=== PATIENT | male | born 1950 | race Two or more races ===

== ENCOUNTER 2025-07-17 09:50 | Inpatient (IN) | payer OTHER, MEDICAID, MEDICARE, SELFPAY ==
[2025-07-17] VITALS (7 sets, daily range): BP systolic 110–174; BP diastolic 67–92; PULSE 80–92; RESP 18–20; TEMP 36.2–36.7; O2SAT 92–96; BMI 27.5; BMI 33.2
--- NOTE | 2025-07-17 10:04 | XR_ITS ---
Examination: CT brain head without contrast. 2-D sagittal coronal reconstructions Date and time of exam:July 17, 2025 1010 hours INDICATIONS: Ground-level fall today with injury to the head, head pain CTDI: vol (mGy):56 DLP: (mGycm):1134 Technique: Multiple CT axial sections of the brain have been obtained, 5 mm slice thickness. Contrast has not been administered. 2-D sagittal, coronal reconstructions have been obtained Low dose protocols were performed. One or more of the following dose reduction techniques were used; automated exposure control, adjustment of the mA and/or KV according to patient size, use of iterative reconstruction technique. Findings: No significant ventricular enlargement. Artifacts generated by the patient's neural transmitter wires Intra-axial or extra-axial hemorrhage density is not seen. No mass effect or midline shift Basal cisterns are not remarkable. Fourth ventricle is midline. No cranial vault fracture Impression: Limited study with no hemorrhage mass effect or midline shift noted
--- NOTE | 2025-07-17 10:04 | XR_ITS ---
Examination: CT cervical spine without contrast 2-D sagittal reconstructions 2-D coronal reconstructions 3-D reconstructions. Exam date and time:July 17, 2025 1010 hours INDICATIONS: Ground-level fall today with injury to the neck, neck pain CTDI:vol (mGy) 17.5 DLP: (mGycm) 136 Technique: Multiple 2 mm axial sections of the cervical spine have been obtained. The coronal and sagittal reconstructions have been obtained. 3-D reconstructions have been obtained. Low dose protocols were performed. One or more of the following dose reduction techniques were used; automated exposure control, adjustment of the mA and/or KV according to patient size, use of iterative reconstruction technique. Findings: Axial sections demonstrate intact base of the skull. C1 exhibit satisfactory relationship to the odontoid. No acute cervical vertebral body fracture seen. Alignment posterior spinous processes satisfactory. Impression: No acute cervical fracture.
--- NOTE | 2025-07-17 10:05 | XR_ITS ---
Examination: CT abdomen and pelvis without contrast. Coronal 3-D reconstructions. Sagittal 2-D reconstructions. Date and time of exam:July 17, 2025 1020 hours INDICATIONS: Patient fell today with abdominal tenderness CTDI: vol (mGy): 10.5 DLP: (mGycm): 693 Technique: Axial images of the abdomen have been obtained, 3 mm slice thickness Intravenous contrast material has not been administered. Low dose protocols were performed. One or more of the following dose reduction techniques were used; automated exposure control, adjustment of the mA and/or KV according to patient size, use of iterative reconstruction technique. Findings: No pneumothorax Low-density liver lesions most consistent with cysts No gallstones Spleen appears intact Prominent left perinephric stranding, differential would include perinephric hemorrhage No renal or ureteral calculi, no hydronephrosis The abdominal aorta appears intact Negative for pneumoperitoneum Urinary bladder contracted around a Brar catheter Transverse prostate dimension 5.3 cm Severe osteopenia with diffuse advanced lumbar degenerative disc disease IMPRESSION: No liver or splenic laceration on this noncontrast study Prominent left perinephric stranding, differential would include urinary tract infection, perinephric hemorrhage not excluded, consider CTA abdomen pelvis post contrast follow-up as clinically warranted
--- NOTE | 2025-07-17 10:08 | EKG_ITS ---
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
--- NOTE | 2025-07-17 10:17 | EDNOTE_ITS ---
<Statement entered by Angy Blood MD - 08/06/25 06:55> I, Angy Blood MD, have reviewed the history, exam, and assessment of the patient. I have evaluated the patient independently and agree with the plan of care documented by [ ]. All diagnostic studies were reviewed and discussed. I confirm the diagnosis as documented by the Resident. I was present during the Medical Decision Making for this patient. The patient's plan of care was created between myself and the Resident and consistent with our discussion of the patient's case. ED Abdominal Pain RME/HPI General Chief Complaint: Weakness Stated complaint: WEAKNESS Time seen by provider: 07/17/25 10:21 Arrival date/time: 07/17/25 09:50 Source: patient, EMS and other (wireless network engineer) Mode of arrival: EMS RME / HPI RME / HPI narrative: Mr. Urrutia is a 74-year-old male with past medical history of BPH with chronic indwelling Brar catheter and Parkinson's disease who presented to [facility] [place] emergency department on July 17, 2025 with a chief complaint of urinary tract infection and weakness. History obtained from EMS, wireless network engineer and patient patient started feeling weak and not like his usual self on Wednesday, was seen at [facility] and was discharged on Keflex for urinary tract infection, however patient's symptoms continued to worsen, he had a fall on Wednesday and hit his head as well. Currently complains of left-sided back pain, generalized weakness per wireless network engineer at bedside patient's Brar was changed on July 07 however Brar catheter exchanged in the emergency department showed significant cloudy urine with about 1300 cc drained likely patient's Brar catheter was occluded versus dislodged. Patient otherwise complains of no nausea vomiting shortness of breath chest pain and headache. Related Data Home Medications ?Medication ?Instructions ?Recorded ?Confirmed carbidopa 25 mg-levodopa 100 mg 2 tab PO TID 07/17/25 07/17/25 tablet pramipexole 0.25 mg tablet 0.25 mg PO TID 07/17/25 rasagiline 1 mg tablet 1 mg PO DAILY 07/17/2507/17 Allergies Allergy/AdvReac Type Severity Reaction Status Date / Time No Known Allergies Allergy Verified 07/17/25 10:53 Review of Systems Review of Systems Systems Reviewed: All systems reviewed, normal except as documented Past Medical History Past Medical History Comments PMH COMMENT: PMH: Positive for BPH with chronic indwelling Brar catheter and Parkinson's disease PSHx: Appendectomy, Deep Brain Stimulator Insertion Allergies:NKDFA Social history: -Smokin pack years, not a current smoker -Alcohol Use: Denies -Illicit Drug Use: Denies Family History: CHF in Father and Mother ED Exam Narrative Physical exam: GENERAL: no acute distress, AAO x3, laying in bed HEENT: Head AT/ NC. Mucous membranes dry. PERRL., neck is flexed forward. NECK: Supple, no lymphadenopathy, no carotid bruits. CARDIOVASCULAR: RRR. Normal S1/S2, No m/r/g. R>L pitting edema of bilateral LEs. 2+ RLE (worse at the ankle and foot) RESPIRATORY: CTAB. No wheezing, rhonchi, crackles. GASTROINTESTINAL: Abdomen soft, non tender no palpable masses. Bowel sounds present slighly distended, no rebound no guarding, no flank pain, pt endorses back pain, CVA tenderness not appreciated on exam MUSCULOSKELETAL:? No cyanosis or edema,swelling of ankles bilaterally, nontender R elbow tenderness (2/2 recent fall), NEUROLOGICAL: masked faces, No focal deficits. Sensation intact, symmetric. pill rolling tremor of RUE, PSYCHIATRIC: Awake and alert, not agitated, SKIN: No obvious rashes, no jaundice, poor turgor. Course Course Course Narrative: 74-year-old male with chronic indwelling Brar seen in ER for suspicion of UTI Brar catheter exchanged in ER, 1300 cc drained immediately suspicion of dislodgment of Brar catheter Patient had a fall earlier this week reports hitting head and bump on head Workup: CBC: WBC 20.9, hemoglobin 13.8, platelet 300, neutrophilia noted neutrophil 18.4 Coags INR 1.1, PTT APTT normal CMP sodium 135, potassium 5.7, chloride 99, bicarb 20.7, anion gap 15, BUN 69, creatinine 6.0, glucose 138, lactate 1.6, calcium 8.7, phosphorus 4.9, magnesium 2.6, bilirubin 1.7, AST 24, ALT 15, alk phos 145, ammonia less than 10, troponin negative, BNP 60, total protein 7.8, albumin 4.2, globulin 3.6, Pro-Adelfo 1.12 Urinalysis: Cloudy urine, 2+ protein, 3+ blood, positive leukocyte esterase, RBC 87, WBC 1112, rare bacteria Urine culture and blood culture sent EKG shows sinus rhythm, rate 90s some ST depression noted CT cervical spine negative for cervical fracture CT head negative, deep brain stimulator noted CT abdomen pelvis shows significant left perinephric stranding Venous Doppler obtained bilateral lower extremities negative for DVT Since replacement of Brar patient had good output nearly drained 2 L urine output Case was discussed with engineering systems analyst on-call Dr. Gutiérrez she recommended repeating renal panel later today and following urine output Patient was given ceftriaxone 2 g in ED, 1 L NS bolus, calcium chloride and Kayexalate Quality Measures none Orders Category Date Time Status Admit to Inpatient Status Routine Admission 07/17/25 13:27 Active Patient Condition Routine Admission 07/17/25 13:27 Ordered Bedside Blood Glucose NOW Care 07/17/25 10:08 Completed COVID-19 Screening Questionnaire NOW Care 07/17/25 12:30 Completed Orthodontist Assistant Q4H START 00 Care 07/17/25 10:03 Active Continuous Pulse Oximetry NOW Care 07/17/25 10:03 Completed Decision to Admit X1 Care 07/17/25 12:30 Completed Insert IV NOW Care 07/17/25 10:06 Completed Notify provider NEEDED Care 07/17/25 13:27 Active Obtain weight NOW Care 07/17/25 13:27 Active Strict Intake and Output Routine Care 07/17/25 10:08 Ordered Urinary Catheter NOW Care 07/17/25 10:09 Active Vital Signs, Non-Routine [id number] Care 07/17/25 13:30 Ordered Consult to Nephrology Stat Cons 07/17/25 12:[address] abdomen pelvis wo con Stat Exams 07/17/25 10:[address] cervical spine wo con Stat Exams 07/17/25 10:[address] head/brain wo con Stat Exams 07/17/25 10:04 Completed US venous doppler LE BI Stat Exams 07/17/25 11:09 Completed Ammonia Stat Lab 07/17/25 10:45 Completed BNP [B-Type Natriuretic Peptide] Stat Lab 07/17/25 10:45 Completed Blood Culture (Lab) Stat Lab 07/17/25 10:45 Received CBC AM DRAW Lab 07/18/25 05:31 Completed CBC AM DRAW Lab 07/19/25 05:00 Ordered CBC AM DRAW Lab 07/20/25 05:00 Ordered CBC AM DRAW Lab 07/21/25 05:00 Ordered CBC AM DRAW Lab 07/22/25 05:00 Ordered CBC AM DRAW Lab 07/23/25 05:00 Ordered CBC Stat Lab 07/17/25 10:45 Completed CMP [Comprehensive Metabolic Panel] AM DRAW Lab 07/18/25 05:31 Completed CMP [Comprehensive Metabolic Panel] AM DRAW Lab 07/19/25 05:00 Ordered CMP [Comprehensive Metabolic Panel] AM DRAW Lab 07/20/25 05:00 Ordered CMP [Comprehensive Metabolic Panel] AM DRAW Lab 07/21/25 05:00 Ordered CMP [Comprehensive Metabolic Panel] AM DRAW Lab 07/22/25 05:00 Ordered CMP [Comprehensive Metabolic Panel] AM DRAW Lab 07/23/25 05:00 Ordered CMP [Comprehensive Metabolic Panel] Routine Lab 07/17/25 14:32 Completed Comprehensive Metabolic Panel Stat Lab 07/17/25 10:45 Completed INR [Prothrombin Time with INR] Stat Lab 07/17/25 10:45 Completed Lactate (Lactic Acid) Routine Lab 07/17/25 14:32 Completed Lactate (Lactic Acid) Stat Lab 07/17/25 10:45 Completed Magnesium AM DRAW Lab 07/18/25 05:31 Completed Magnesium AM DRAW Lab 07/19/25 05:00 Ordered Magnesium AM DRAW Lab 07/20/25 05:00 Ordered Magnesium AM DRAW Lab 07/21/25 05:00 Ordered Magnesium AM DRAW Lab 07/22/25 05:00 Ordered Magnesium AM DRAW Lab 07/23/25 05:00 Ordered Magnesium Stat Lab 07/17/25 10:45 Completed PTT [Partial Thromboplastin Time] Stat Lab 07/17/25 10:45 Completed Phosphorous AM DRAW Lab 07/18/25 05:31 Completed Phosphorous AM DRAW Lab 07/19/25 05:00 Ordered Phosphorous AM DRAW Lab 07/20/25 05:00 Ordered Phosphorous AM DRAW Lab 07/21/25 05:00 Ordered Phosphorous AM DRAW Lab 07/22/25 05:00 Ordered Phosphorous AM DRAW Lab 07/23/25 05:00 Ordered Phosphorous Stat Lab 07/17/25 10:45 Completed Procalcitonin Stat Lab 07/17/25 10:45 Completed Troponin I Stat Lab 07/17/25 10:45 Completed Urinalysis Stat Lab 07/17/25 10:10 Completed Urine Culture Stat Lab 07/17/25 10:10 Results Acetaminophen Tab [Tylenol Tab] Med 07/17/25 13:27 Active 650 mg PO Q6H PRN Acetaminophen Tab [Tylenol Tab] Med 07/17/25 13:27 Active 650 mg PO Q6H PRN Calcium Chloride 10% Abboject Med 07/17/25 12:00 Discontinued 10 ml IV X1 ONE HYDROcodone/APAP 10/325 [[place] 10/325] Med 07/17/25 13:27 Active 1 tab PO Q4H PRN Heparin Inj Med 07/17/25 21:00 Discontinued 5,000 unit SC Q12HR Sod Polystyrene Sulfon Susp [Kayexalate Susp] Med 07/17/25 12:00 Discontinued 30 gm PO X1 ONE Sodium Chloride 0.9% 1000 ml [Ns] 1,000 ml Med 07/17/25 12:00 Discontinued IV 999 mls/hr cefTRIAXone [Rocephin] 2 gm Med 07/17/25 11:01 Discontinued SODIUM CHLORIDE 0.9% ([place]) [Ns 0.9% (P)] 50 ml IV X1 Code Status Routine Oth 07/17/25 13:27 Ordered EKG (RT) Stat RT 07/17/25 10:08 Draft Oxygen Delivery PRN RT 07/17/25 10:08 Active Vital Signs Vital signs: Vital Signs Temperature 98.1 F 07/17/25 09:51 Pulse Rate 90 07/17/25 09:51 Respiratory Rate 20 07/17/25 09:51 Blood Pressure 174/92 H 07/17/25 09:51 Pulse Oximetry (%) 94 L 07/17/25 09:51 Oxygen Delivery Method Room Air 07/17/25 09:51 Abdominal Pain MDM MDM Narrative MDM Narrative:: #Pyelonephritis #Complicated UTI #Severe MCKAY likely postrenal #Status post fall 74-year-old male with chronic indwelling Brar seen in ER for suspicion of UTI Brar catheter exchanged in ER, 1300 cc drained immediately suspicion of dislodgment of Brar catheter Patient had a fall earlier this week reports hitting head and bump on head Workup: CBC: WBC 20.9, hemoglobin 13.8, platelet 300, neutrophilia noted neutrophil 18.4 Coags INR 1.1, PTT APTT normal CMP sodium 135, potassium 5.7, chloride 99, bicarb 20.7, anion gap 15, BUN 69, creatinine 6.0, glucose 138, lactate 1.6, calcium 8.7, phosphorus 4.9, magnesium 2.6, bilirubin 1.7, AST 24, ALT 15, alk phos 145, ammonia less than 10, troponin negative, BNP 60, total protein 7.8, albumin 4.2, globulin 3.6, Pro-Adelfo 1.12 Urinalysis: Cloudy urine, 2+ protein, 3+ blood, positive leukocyte esterase, RBC 87, WBC 1112, rare bacteria Urine culture and blood culture sent EKG shows sinus rhythm, rate 90s some ST depression noted CT cervical spine negative for cervical fracture CT head negative, deep brain stimulator noted CT abdomen pelvis shows significant left perinephric stranding Venous Doppler obtained bilateral lower extremities negative for DVT Since replacement of Brar patient had good output nearly drained 2 L urine output Case was discussed with engineering systems analyst on-call Dr. Gutiérrez she recommended repeating renal panel later today and following urine output Patient was given ceftriaxone 2 g in ED, 1 L NS bolus, calcium chloride and Kayexalate Case discussed with hospitalist team they agreed to admit patient Case discussed with Attending Physician Dr. devang Calvo MD Internal Medicine PGY-2 Disclaimer: This note was dictated by speech recognition. Minor errors in trans cription may be present due to voice recognition software. Patient data External records reviewed:: EMS form Clinical information provided by:: patient, EMS and wireless network engineer Social determinants that could affect healthcare access:: none Patient has the following chronic illnesses:: As above How is presenting disease/condition affected by chronic disease/condition?: exacerbated by Evaluation data The following diagnostics were reviewed and interpreted by me:: lab results, radiology exam(s) and EKG tracing(s) Lab and/or radiology exams considered but not ordered:: None Interpretation Summary: CBC: WBC 20.9, hemoglobin 13.8, platelet 300, neutrophilia noted neutrophil 18.4 Coags INR 1.1, PTT APTT normal CMP sodium 135, potassium 5.7, chloride 99, bicarb 20.7, anion gap 15, BUN 69, creatinine 6.0, glucose 138, lactate 1.6, calcium 8.7, phosphorus 4.9, magnesium 2.6, bilirubin 1.7, AST 24, ALT 15, alk phos 145, ammonia less than 10, troponin negative, BNP 60, total protein 7.8, albumin 4.2, globulin 3.6, Pro-Adelfo 1.12 Urinalysis: Cloudy urine, 2+ protein, 3+ blood, positive leukocyte esterase, RBC 87, WBC 1112, rare bacteria Urine culture and blood culture sent EKG shows sinus rhythm, rate 90s some ST depression noted CT cervical spine negative for cervical fracture CT head negative, deep brain stimulator noted CT abdomen pelvis shows significant left perinephric stranding Venous Doppler obtained bilateral lower extremities negative for DVT Medications / Prescriptions Medications or Prescriptions considered but not ordered:: None Medication administrations:: Medication Administration History Acetaminophen (Acetaminophen 325 Mg Tablet) 650 mg PO Q6H PRN PRN Reason: Fever >101.5 Stop: 08/16/25 13:26 Acetaminophen (Acetaminophen 325 Mg Tablet) 650 mg PO Q6H PRN PRN Reason: PAIN SCALE 1-3 (mild Stop: 08/16/25 13:26 Hydrocodone Bitart/Acetaminophen (Hydrocodone/Apap 325 Tab) 1 tab PO Q4H PRN PRN Reason: PAIN SCALE 4-6 (Moderate Stop: 07/22/25 13:26 Docusate Sodium (Docusate Sod Liqd 100 Mg/10 Ml Udc) 100 mg PO BID PRN; Protocol PRN Reason: constipation Stop: 08/16/25 20:59 Heparin Sodium (Porcine) (Heparin Sod Inj 5000 Unit/Ml Vial) 5,000 unit SC Q12HR [facility] Stop: 07/31/25 20:59 Last Admin: 07/18/25 08:55 Dose: 5,000 unit Documented By: PUNEET Co-signed By: MARI Admin: 07/17/25 21:45 Dose: 5,000 unit Documented By: MERI Co-signed By: VANESSA Cefepime HCl 2 gm/ Sodium (Chloride) 50 mls @ 100 mls/hr IV Q12HR [facility] Stop: 07/24/25 15:59 Last Admin: 07/18/25 08:54 Dose: 100 mls/hr Documented By: Infusion: 07/17/25 17:13 Dose: Infused Documented By: Admin: 07/17/25 16:43 Dose: 100 mls/hr Documented By: PUNEET Lactated Ringer's (Lactated Ringers) 1,000 mls @ 75 mls/hr IV .[id number] [facility] Stop: 07/18/25 18:55 Last Admin: 07/18/25 06:33 Dose: 75 mls/hr Documented By: Infusion: 07/18/25 06:03 Dose: Infused Documented By: Admin: 07/17/25 16:43 Dose: 75 mls/hr Documented By: PUNEET Discontinued Medications Calcium Chloride (Calcium Chloride 10% Inj 10 Ml Syrg) 10 ml IV X1 ONE Stop: 07/17/25 12:01 Last Admin: 07/17/25 12:09 Dose: 10 ml Documented By: MOHINDER Heparin Sodium (Porcine) (Heparin Sod Inj 5000 Unit/Ml Vial) 5,000 unit SC Q12HR [facility] Stop: 07/31/25 20:59 Ceftriaxone Sodium 2 gm/ (Sodium Chloride) 50 mls @ 100 mls/hr IV X1 ONE Stop: 07/17/25 11:30 Last Infusion: 07/17/25 11:47 Dose: Infused Documented By: Admin: 07/17/25 11:12 Dose: 100 mls/hr Documented By: MOHINDER Sodium Chloride (Ns) 1,000 mls @ 999 mls/hr IV .Q1H1M ONE Stop: 07/17/25 13:00 Last Infusion: 07/17/25 13:06 Dose: Infused Documented By: Admin: 07/17/25 12:09 Dose: 999 mls/hr Documented By: MOHINDER Sodium Polystyrene Sulfonate (Sod Polystyrene Sulfon Susp 15 Gm/60 Ml Btl) 30 gm PO X1 ONE Stop: 07/17/25 12:01 Last Admin: 07/17/25 12:10 Dose: 30 gm Documented By: MOHINDER As above Consultations Consultation(s) initiated? (list below): Yes Consultation #1 (Physician, Specialty, Details): Dr. Gutiérrez, nephrology, MCKAY Diagnosis Differential diagnosis abdominal pain: other (Pyelonephritis, urinary tract infection, MCKAY postrenal) Most likely diagnosis given after review of the tests above:: MCKAY, pyelonephritis, UTI Admission Indicated Admission indicated?: indicated Admission Request Was there a request for admission?: Yes Admission Attestation Admission request attestation: Discussed case with Dr. Manuel from Hospitalist service regarding admission. Discussed patients ED course, exam findings, labs, and radiology results. The Hospitalist agrees to accept the patient for admission. Disposition Plan Disposition Plan: Admit Discharge Plan Plan Patient Disposition: Admit Acute Care w/in Hospital Problem List Clinical Impression: MCKAY (acute kidney injury), Acute pyelonephritis, Complicated urinary tract infection
[2025-07-17 10:26] LABS: Collection Type, Urine Catheter; Squamous Epithelial Cell,Urine 0 /hpf (0-5)
[2025-07-17 10:43] LABS: Bacteria,Urine Rare; Bilirubin,Urine Negative (Negative); Blood,Urine 3+ (Negative); Color,Urine Yellow (Lt Yel-Yel); Glucose, Urine Negative (Negative); Ketones,Urine Negative (Negative); Leukocyte Esterase,Urine Positive (Negative); Nitrite,Urine Negative (Negative); PH,Urine 6.0 (5.0-7.0); Protein,Urine 2+ (Neg - Trace); RBC,Urine 87 /hpf (0-3); Specific Gravity,Urine 1.017 (1.001-1.035); Urobilinogen,Urine Negative mg/dL (0.0-1.0); WBC,Urine 1112 /hpf (0-5)
[2025-07-17 10:54] LABS: Lactate (Lactic Acid) 1.6 mMol/L (0.4-2.0)
[2025-07-17 10:57] LABS: Basophils # (Auto) 0.0 Thou/mm3 (0.0-0.2); Basophils % (Auto) 0 % (0-2.5); Eosinophils # (Auto) 0.0 Thou/mm3 (0.0-0.5); Eosinophils % (Auto) 0 % (0-10); Hematocrit 41.6 % (41.0-53.0); Hemoglobin 13.8 g/dL (13.5-16.0); Immature Granulocytes Auto 0.17 Thou/mm3 (0.00-0.00); Lymphocytes # (Auto) 0.9 Thou/mm3 (1.0-4.8); Lymphocytes % (Auto) 5 % (10-50); Mean Corpuscular HGB Conc 33.2 g/dl (31.0-37.0); Mean Corpuscular Hemoglobin 29.1 pg (25.0-35.0); Mean Corpuscular Volume 88 fL (80-100); Monocytes # (Auto) 1.3 Thou/mm3 (0.0-0.8); Monocytes % (Auto) 6 % (0-12); Neutrophils # (Auto) 18.4 Thou/mm3 (1.8-7.7); Neutrophils % (Auto) 88 % (37-80); Nucleated Red Blood Cell # 0.00 Thou/mm3 (0.00-0.00); Nucleated Red Blood Cell % 0 /100 WBC (0); Platelet Count 300 Thou/mm3 (140-440); RDW Standard Deviation 43.4 fL (35.1-43.9); Red Blood Count 4.75 Miln/mm3 (4.50-5.90); White Blood Count 20.9 Thou/mm3 (3.8-10.6)
[2025-07-17 10:59] LABS: Clarity,Urine Cloudy (Clear/Hazy)
--- NOTE | 2025-07-17 11:09 | XR_ITS ---
Examination: Venous duplex lower extremity sonogram, bilateral. Date and time of exam: July 17, 2025 1220 hours INDICATIONS: Bilateral calf swelling redness and pain 6 months Technique: Multiple sonographic images of the deep venous system have been obtained. B-mode/2-D grayscale imaging of vascular structures and Doppler spectral analysis (waveforms) and color performed Both legs are examined. Findings: Deep venous systems do not demonstrate abnormal echogenicity. All visualized deep veins exhibit compressibility. All visualized deep veins exhibit augmentation. Impression: Negative for deep vein thrombosis
[2025-07-17 11:10] LABS: INR 1.1 (0.9-1.3); Partial Thromboplastin Time 28.9 Seconds (22.0-36.0); Prothrombin Time 11.6 Seconds (9.0-12.2)
[2025-07-17] MEDS: cefTRIAXone 2 GM in SODIUM CHLORIDE 0.9% (Popper) 50 ML IV (11:12)
[2025-07-17 11:22] LABS: Alanine Aminotransferase 15 U/L (10-49); Albumin, Serum 4.2 gm/dL (3.4-4.8); Albumin/Globulin Ratio 1.2 (1.2-2.2); Alkaline Phosphatase 145 U/L (46-116); Anion Gap 15 (7-16); Aspartate Amino Transferase 24 U/L (0-34); B-Type Natriuretic Peptide 60 pg/mL (0-100); BUN/Creatinine Ratio 12 Ratio (12-20); Bilirubin,Total 1.7 mg/dL (0.3-1.2); Blood Urea Nitrogen 69 mg/dL (9-23); Calcium 8.7 mg/dL (8.3-10.6); Calcium (Corrected) 8.7 mg/dL (8.5-10.1); Carbon Dioxide 20.7 mMol/L (20.0-31.0); Chloride 99 mMol/L (98-107); Creatinine (Component) 6.0 mg/dL (0.6-1.3); Estimated Creatinine Clearance 11.5 mL/min (>60); Globulin 3.6 gm/dL (2.3-3.5); Glucose 138 mg/dL (74-106); Magnesium 2.6 mg/dL (1.6-2.6); Osmolality,Calculated 292 (275-295); Phosphorous 4.9 mg/dL (2.4-5.1); Potassium 5.7 mMol/L (3.4-5.1); Procalcitonin 1.12 ng/ml (0.0-0.49); Sodium 135 mMol/L (136-145); Total Protein 7.8 gm/dL (5.7-8.2); Troponin I < 0.020 ng/mL (0.0-0.045); eGFR 9 See Note
[2025-07-17 11:39] LABS: Ammonia < 10 uMol/L (11-32)
[2025-07-17] MEDS: CALCIUM CHLORIDE 10% INJ 10 ML SYRG IV (12:09)
[2025-07-17] MEDS: SODIUM CHLORIDE 0.9% 1000 ML 1,000 ML 999 ML IV (12:09)
[2025-07-17] MEDS: SOD POLYSTYRENE SULFON SUSP 15 GM/60 ML BTL 30 GM PO (12:10)
--- NOTE | 2025-07-17 13:26 | ESHP_ITS ---
<Statement entered by Charlee Ames MD - 07/23/25 09:12> I reviewed above note and agree with findings and plans. I have also personally examined the patient with medicine team and went over assessment and plan with medical team including programming internship and resident physician. <Statement entered by Patty Lloyd MD - 07/19/25 15:41> Mr. Urrutia is a 74-year-old male with past medical history significant for BPH with chronic Cain, Parkinson's disease with deep brain stimulator and carbidopa levodopa who presented to the ED with generalized weakness and lack of appetite for the last 5 days. Patient went to [facility] 5 days ago after his Cain stopped draining and was placed on Keflex however only received 1 dose far in [place]. Patient to be admitted for further management of sepsis secondary to catheter associated UTI. Patient's SOFA score is 7 and endorgan damage noted and both creatinine and bilirubin elevation. Patient will be on IV antibiotics pending urine cultures. I discussed with and supervised the programming internship physician who took care of this patient. I personally saw and examined the patient and discussed the assessment and plan with the entire medicine team, including my attending , I agree with most of the assessment and plan as documented below Patty Lloyd M.D. PGY-3 Documentation for date of: 07/17/25 HPI History of Present Illness Chief complaint: uti with chronic cain History of present illness: Pt caregiver Jackie is present and able to supplement the patients history. Mr. Urrutia is a 74-year-old gentleman with a past medical history significant for BPH with chronic Cain who previous followed with Dr. Elizabeth, urologist, and Artemio who also has a history of Parkinson disease with deep brain stimulator in place followed by Dr. Lloyd on carbidopa levodopa who presented with generalized weakness anorexia for the past 5 days who presented to [facility] on 07/14 after his cain stopped draining (Cain was changed outpatient on 07/10)he was found to have UTI and was given Keflex 500 mg 3 times daily. Patient continued to feel weak and unlike himself and on Sunday 07/15 patient had ground- level fall without head strike and was left laying on the floor for 3 hours before his son was able to find him. Patient does not report having that history of recurrent UTIs, states that Cain's are changed every 4 to 6 weeks by the [facility]. PMH: BPH with chronic cain (reports not being on bph medications) does not have current urologist, harish followed by Dr. Powers SH: ambulates at home with walker, able to feed himself and transfer to toilets Meds: reconciliation pending ROS Endorses R elbow pain after fall, back pain, fatigue, weakness, anorexia, denies, nausea, vomiting, fevers, chills, sweating ED Course Patient vital signs stable afebrile normotensive heart rate regular satting well on room air, given CMP findings Dr Gutiérrez was consulted who suspects postrenal etiology of MCKAY recommends continuing fluids and following up on renal panel Pertinent labs: WBC 20, creatinine 6, BUN 69, potassium 5.[address] head Negative for acute hemorrhage, mass effect or midline shift, cervical spine CT no acute cervical fractures, CTAP with evidence of Prominent left perinephric stranding, differential would include urinary tract infection, perinephric hemorrhage not excluded venous Doppler of bilateral lower extremities negative for deep vein thrombosis Tx Ceftriaxone 2gm x1 Kayexalate x1 NS 1 L pt was admitted for sepsis 2/2 catheter associated UTI and pyelonephritis Review of Systems Review of Systems Narrative Review of Systems: as per hpi Past Medical History Surgical History OTHER SURGICAL HX: deep brain stimulator Exam Vital Signs Temp Pulse Resp BP Pulse Ox O2 Del Method 97.7 F 88 20 136/90 H 94 L Room Air 07/17/25 11:28 07/17/25 11:28 07/17/25 11:28 07/17/25 11:28 07/17/25 11:28 07/17/25 11:28 Narrative Exam GENERAL: no acute distress, AAO x3, laying in bed HEENT: Head AT/ NC. Mucous membranes dry. PERRL., neck is flexed forward. NECK: Supple, no lymphadenopathy, no carotid bruits. CARDIOVASCULAR: RRR. Normal S1/S2, No m/r/g. R>L pitting edema of bilateral LEs. 2+ RLE (worse at the ankle and foot), 1+ in LUE RESPIRATORY: CTAB. No wheezing, rhonchi, crackles. GASTROINTESTINAL: Abdomen soft, non tender no palpable masses. Bowel sounds present slighly distended, no rebound no guarding, no flank pain, pt endorses back pain, CVA tenderness not appreciated on exam MUSCULOSKELETAL:? No cyanosis or edema,swelling of ankles bilaterally, nontender R elbow tenderness (2/2 recent fall), NEUROLOGICAL: masked faces, No focal deficits. Sensation intact, symmetric. BUE pill rolling tremor of RUE, PSYCHIATRIC: Awake and alert, not agitated, SKIN: No obvious rashes, no jaundice, poor turgor. Results: Labs 07/17/25 10:45 07/17/25 10:45 Labs: Short CBC 07/17/25 Range/Units 10:45 WBC 20.9 H (3.8-10.6) Thou/mm3 Hgb 13.8 (13.5-16.0) g/dL Hct 41.6 (41.0-53.0) % Plt Count 300 (140-440) Thou/mm3 BMP 07/17/25 10:45 Sodium 135 L Potassium 5.7 H Chloride 99 Carbon Dioxide 20.7 BUN 69 H Creatinine 6.0 H* Glucose 138 H Calcium 8.7 Cardiac Enzymes 07/17/25 Range/Units 10:45 Troponin I < 0.020 (0.0-0.045) ng/mL Liver Function 07/17/25 Range/Units 10:45 Total Bilirubin 1.7 H (0.3-1.2) mg/dL AST 24 (0-34) U/L ALT 15 (10-49) U/L Alkaline Phosphatase 145 H (46-116) U/L Albumin 4.2 (3.4-4.8) gm/dL Urine 07/17/25 Range/Units 10:10 Urine Color Yellow (Lt Yel-Yel) Urine Clarity Cloudy A (Clear/Hazy) Urine pH 6.0 (5.0-7.0) Ur Specific Fries 1.017 (1.001-1.035) Urine Protein 2+ A (Neg - Trace) Urine Glucose (UA) Negative (Negative) Quality Measures Quality Measures VTE prophylaxis Advance care planning discussed with:: patient and other Medications Home Medications and Allergies Allergies Allergy/AdvReac Type Severity Reaction Status Date / Time No Known Allergies Allergy Verified 07/17/25 10:53 Visit Medications Discontinued Medications Calcium Chloride (Calcium Chloride 10% Inj 10 Ml Syrg) 10 ml IV X1 ONE Stop: 07/17/25 12:01 Last Admin: 07/17/25 12:09 Dose: 10 ml Ceftriaxone Sodium 2 gm/ (Sodium Chloride) 50 mls @ 100 mls/hr IV X1 ONE Stop: 07/17/25 11:30 Last Infusion: 07/17/25 11:47 Dose: Infused Sodium Chloride (Ns) 1,000 mls @ 999 mls/hr IV .Q1H1M ONE Stop: 07/17/25 13:00 Last Infusion: 07/17/25 13:06 Dose: Infused Sodium Polystyrene Sulfonate (Sod Polystyrene Sulfon Susp 15 Gm/60 Ml Btl) 30 gm PO X1 ONE Stop: 07/17/25 12:01 Last Admin: 07/17/25 12:10 Dose: 30 gm Assessment & Plan Plan Mr. Urrutia is a 74-year-old gentleman with a past medical history significant for BPH with chronic Cain who previous followed with Dr. Elizabeth, urologist, and Artemio, Parkinson disease with deep brain stimulator in place followed by Dr. Lloyd on carbidopa levodopa who presented with generalized weakness and anorexia for the past 5 days who presented to [facility] on 07/14 after his cain stopped draining (Cain was changed outpatient on 07/10)he was found to have UTI and was given Keflex 500 mg 3 times daily, but had persistence of symptoms and ground level fall (imaging negative for fractures or bleeds), who was found to be retaining urine and with pyelonephritis on CTAP, admitted for sepsis 2/2 catheter associated UTI with pyelonephritis. Sepsis 2/2 Catheter associated UTI Pyelonephritis SOFA score 7 failed outpatient management of keflex, Dx CTAP with Prominent left perinephric stranding, differential would include urinary tract infection, perinephric hemorrhage Lactic acid wnl, procal 1.12, WBC 20 UA with 3+blood, 2+ protein, + leuk esterase, 1000 wbc, and rare bacteria Ucx pending Blood cx pending Daily CBC, CMP Tx - Ceflalexin 500mg TID (prescribed by [facility] ed, pt recieved total of 4 doses prior to presenting) - Ceftriaxone 2gm x1 (07/17) - Cefepime 2gm q12 hr (07/17- - holding maintenance fluids given edematous legs - Consider broadening abx to jimmy and vanc if pt does not clinically improve Suspect post renal MCKAY BPH with chronic cain cain catheter had been changed in the outpatient setting on 07/10 and was draining appropriately until 07/14, when it stopped draining (cain gets exchanged every 4-6 weeks by pcp in [place]) cain was exchanged in the ed and had ~1300 cc output Cr 6.0 (baseline: Unknown) BUN 69, Dx f/u PM CMP Tx - Nephrology consulted, appreciate recs, suspects post renal - avoid nephrotoxic agents - renally dose medications Mild Hyperkalemia - Kayexalate in ED Mild hyponatremia (Na 136---> - CTM - 1L NS Mild Hyperbillirubinemia elevated alkaline phosphatase - CTM Ground Level Fall without headstrike pt reports having ground level fall without head strike, the fall was unwitnessed however and pt was left on the ground until son came and found him at baseline he is able to ambulate with walker Dx - CT head negative - Cervical CT no acute fractures - PT consulted Parkinsons Disease Deep brainstimulator in place, followed by Dr. Daniels - Carbidopa- levodopa TID (pending med rec) R>LLE edema DVT US, negative BNP 60, low concern for HF. Constipation healthcare financial analyst reports no BM for the past 5 days - given kayexalate see hypernatremia above - docusate 100mg prn Anorexia pt reports having minimal to no PO intake over the past several days 2/2 poor appetite he expressess willingness to try with some clears and progress as tolerated. -consider supplementing with ensures. Dispo: home (has home health already) Diet: clear liquids advance as tolerated Bowel Reg: docusate prn and kayexalate. VTE ppx: heparin 5000 q12 GI ppx: not indicated Code status: FULL Plan discussed with Dr Lloyd, and Dr. wKaku Manuel MD PGY1
[2025-07-17 14:50] LABS: Lactate (Lactic Acid) 1.6 mMol/L (0.4-2.0)
[2025-07-17 15:15] LABS: Alanine Aminotransferase 17 U/L (10-49); Albumin, Serum 3.7 gm/dL (3.4-4.8); Albumin/Globulin Ratio 1.3 (1.2-2.2); Alkaline Phosphatase 129 U/L (46-116); Anion Gap 13 (7-16); Aspartate Amino Transferase 20 U/L (0-34); BUN/Creatinine Ratio 11 Ratio (12-20); Bilirubin,Total 1.6 mg/dL (0.3-1.2); Blood Urea Nitrogen 52 mg/dL (9-23); Calcium 8.9 mg/dL (8.3-10.6); Calcium (Corrected) 9.1 mg/dL (8.5-10.1); Carbon Dioxide 22.1 mMol/L (20.0-31.0); Chloride 104 mMol/L (98-107); Creatinine (Component) 4.6 mg/dL (0.6-1.3); Estimated Creatinine Clearance 15.0 mL/min (>60); Globulin 2.8 gm/dL (2.3-3.5); Glucose 105 mg/dL (74-106); Osmolality,Calculated 291 (275-295); Potassium 4.4 mMol/L (3.4-5.1); Sodium 139 mMol/L (136-145); Total Protein 6.5 gm/dL (5.7-8.2); eGFR 12 See Note
[2025-07-17] MEDS: RINGERS LACTATED 1000 ML 1,000 ML 75 ML IV (16:43)
[2025-07-17] MEDS: CEFEPIME INJ 2 GM in SODIUM CHLORIDE 0.9% (Popper) 50 ML IV (16:43)
[2025-07-17] MEDS: HEPARIN SOD INJ 5000 UNIT/ML VIAL SC (21:45)
[2025-07-18] VITALS (10 sets, daily range): BP systolic 114–142; BP diastolic 60–78; PULSE 67–88; RESP 16–88; TEMP 36.1–36.8; O2SAT 91–98; BMI 11.0
[2025-07-18 06:11] LABS: Basophils # (Auto) 0.1 Thou/mm3 (0.0-0.2); Basophils % (Auto) 1 % (0-2.5); Eosinophils # (Auto) 0.6 Thou/mm3 (0.0-0.5); Eosinophils % (Auto) 5 % (0-10); Hematocrit 33.8 % (41.0-53.0); Hemoglobin 10.9 g/dL (13.5-16.0); Immature Granulocytes Auto 0.16 Thou/mm3 (0.00-0.00); Lymphocytes # (Auto) 1.2 Thou/mm3 (1.0-4.8); Lymphocytes % (Auto) 10 % (10-50); Mean Corpuscular HGB Conc 32.2 g/dl (31.0-37.0); Mean Corpuscular Hemoglobin 29.0 pg (25.0-35.0); Mean Corpuscular Volume 90 fL (80-100); Monocytes # (Auto) 0.9 Thou/mm3 (0.0-0.8); Monocytes % (Auto) 7 % (0-12); Neutrophils # (Auto) 8.9 Thou/mm3 (1.8-7.7); Neutrophils % (Auto) 76 % (37-80); Nucleated Red Blood Cell # 0.00 Thou/mm3 (0.00-0.00); Nucleated Red Blood Cell % 0 /100 WBC (0); Platelet Count 253 Thou/mm3 (140-440); RDW Standard Deviation 44.0 fL (35.1-43.9); Red Blood Count 3.76 Miln/mm3 (4.50-5.90); White Blood Count 11.7 Thou/mm3 (3.8-10.6)
[2025-07-18] MEDS: RINGERS LACTATED 1000 ML 1,000 ML 75 ML IV (06:33)
[2025-07-18 06:40] LABS: Alanine Aminotransferase 18 U/L (10-49); Albumin, Serum 3.0 gm/dL (3.4-4.8); Albumin/Globulin Ratio 1.2 (1.2-2.2); Alkaline Phosphatase 107 U/L (46-116); Anion Gap 12 (7-16); Aspartate Amino Transferase 16 U/L (0-34); BUN/Creatinine Ratio 19 Ratio (12-20); Bilirubin,Total 1.1 mg/dL (0.3-1.2); Blood Urea Nitrogen 45 mg/dL (9-23); Calcium 8.1 mg/dL (8.3-10.6); Calcium (Corrected) 8.9 mg/dL (8.5-10.1); Carbon Dioxide 22.7 mMol/L (20.0-31.0); Chloride 108 mMol/L (98-107); Creatinine (Component) 2.4 mg/dL (0.6-1.3); Estimated Creatinine Clearance 33.7 mL/min (>60); Globulin 2.6 gm/dL (2.3-3.5); Glucose 88 mg/dL (74-106); Magnesium 2.1 mg/dL (1.6-2.6); Osmolality,Calculated 295 (275-295); Phosphorous 3.6 mg/dL (2.4-5.1); Potassium 3.9 mMol/L (3.4-5.1); Sodium 143 mMol/L (136-145); Total Protein 5.6 gm/dL (5.7-8.2); eGFR 27 See Note
[2025-07-18] MEDS: CEFEPIME INJ 2 GM in SODIUM CHLORIDE 0.9% (Popper) 50 ML IV ×2 (08:54→22:33)
[2025-07-18] MEDS: HEPARIN SOD INJ 5000 UNIT/ML VIAL SC ×2 (08:55→22:36)
--- NOTE | 2025-07-18 09:50 | PC.SS ---
Follow up note: Pending cultures.
--- NOTE | 2025-07-18 12:28 | PC.SS ---
SS met with patient and 2 caregivers (Maggie Jimenez and Nimisha Hart) regarding his d/c plan. Pt is alert/oriented. Pt was admitted for Complicated UTI with Pyelonephritis. Pt confirmed demographic and contact information is correct on facesheet. Pt resides with sonFran. Pt ambulates utilizing a 4 wheel with seat, rollator walker. Pt requires assistance with all ADLs. Pt has 2 cargivers from [facility] (120 hours a month). SS provided 24 Hour Home Care [facility] resources at bedside. Pt named his son, Edenilson Urrutia medical decision maker if he is unable. Caregiver, Maggie states patient's son, Edenilson Urrutia has POA over pt. SS attempted to call sonEdenilson but was only able to leave voicemail. SS provided pt with d/c options to home or SNF. Patient?s choice is to return home upon d/c. Per caregivers pt is not diabetic and is not on dialysis. Pt is currently on 2 liters of O2. Pt does not utilize O2 at home. Patient utilizes [facility] through [email or web address]. Pt followed up with PCP on Wednesday. Caregivers will provide transportation home upon dc. D/C plan: Return home Next of Kin: Edenilson Urrutia, son, phone# [phone] PCP: Dr. Pierre Address: Correct on facesheet Caregivers: Maggie Jimenez, phone# [phone] and Nimisha Hart, phone# [phone]
--- NOTE | 2025-07-18 12:49 | PC.NURSE ---
I asked pt's caregivers to bring his own Rasagiline
--- NOTE | 2025-07-18 15:19 | ESPR_ITS ---
<Statement entered by Charlee Ames MD - 07/26/25 17:35> I reviewed above note and agree with findings and plans. I have also personally examined the patient with medicine team and went over assessment and plan with medical team including internal medicine specialist and resident physician. Documentation for date of: 07/18/25 Subjective Subjective Interval history: Patient examined at bedside. No events overnight. Complains of generalized weakness unable to get out of the bed work with physical therapy. Vitals are stable, leukocytosis resolving with WBC 11.7. MCKAY improving creatinine 2.4. Nephrology Dr Gutiérrez was consulted who evaluated patient. At this time we will continue half NS maintenance fluids and monitor creatinine. No change in current management otherwise. Continue cefepime 2 g twice daily for pyelonephritis secondary to catheter associated UTI. Urine cultures and blood cultures are pending. Exam Vital Signs Temp Pulse Resp BP Pulse Ox O2 Del Method 97.2 F 82 18 134/76 H 93 L Room Air 07/18/25 11:45 07/18/25 12:46 07/18/25 11:45 07/18/25 11:45 07/18/25 11:45 07/18/25 11:45 Narrative Exam General: Elderly male. No acute distress, cooperative HEENT: NCAT, No JVD noted. Mucosa moist. Pupils are equal and reactive to light bilaterally Cardiovascular: Normal S1 and S2. Regular rate and rhythm. Respiratory: Lungs are clear to auscultation bilaterally. No wheezing or crackles heard. Abdomen: mildly distended, nontender, normal bowel sounds. : no CVA tenderness, cain in place, dark yellow Skin: Warm to touch, dry, no rashes noted Musculoskeletal: No gross injuries. Able to move all 4 extremities. B/L LE +2 pitting edema Neuro: Alert and oriented x3. No focal neuro deficits. Bilateral hand tremor. Psych: Normal affect and mood Objective Labs 07/18/25 05:31 07/18/25 05:31 Labs: Laboratory Results - last 24 hr 07/17/25 07/18/25 14:32 05:31 WBC 11.7 H D RBC 3.76 L Hgb 10.9 L D Hct 33.8 L MCV 90 MCH 29.0 MCHC 32.2 RDW Std Deviation 44.0 H Plt Count 253 D Neut % (Auto) 76 Lymph % (Auto) 10 Rains % (Auto) 7 Eos % (Auto) 5 Baso % (Auto) 1 Neut # (Auto) 8.9 H Lymph # (Auto) 1.2 Rains # (Auto) 0.9 H Eos # (Auto) 0.6 H Baso # (Auto) 0.1 Immature Gran # (Auto) 0.16 H Absolute Nucleated RBC 0.00 Immature Gran % 1 H Nucleated RBC % 0 Sodium 139 143 Potassium 4.4 D 3.9 D Chloride 104 108 H Carbon Dioxide 22.1 22.7 Anion Gap 13 12 BUN 52 H 45 H Creatinine 4.6 H* D 2.4 H D Estim Creat Clear Calc 15.0 L 33.7 L eGFR 12 L* 27 L BUN/Creatinine Ratio 11 L 19 Glucose 105 88 Calculated Osmolality 291 295 Calcium 8.9 8.1 L Corrected Calcium 9.1 8.9 Phosphorus 3.6 Magnesium 2.1 Total Bilirubin 1.6 H 1.1 D AST 20 16 ALT 17 18 Alkaline Phosphatase 129 H 107 D Total Protein 6.5 5.6 L Albumin 3.7 D 3.0 L D Globulin 2.8 2.6 Albumin/Globulin Ratio 1.3 1.2 Quality Measures Quality Measures none Advance care planning discussed with:: patient Assessment & Plan Assessment Current Active Medications: Generic Name Dose Route Start Last Admin Trade Name Freq PRN Reason Stop Dose Admin Acetaminophen 650 mg 07/17/25 13:27 Acetaminophen 325 Mg Tablet PO 08/16/25 13:26 Q6H PRN Fever >101.5 Acetaminophen 650 mg 07/17/25 13:27 Acetaminophen 325 Mg Tablet PO 08/16/25 13:26 Q6H PRN PAIN SCALE 1-3 (mild Hydrocodone Bitart/Acetaminophen 1 tab 07/17/25 13:27 Hydrocodone/Apap 10/325 Tab PO 07/22/25 13:26 Q4H PRN PAIN SCALE 4-6 (Moderate Carbidopa/Levodopa 2 tab 07/18/25 14:00 Carbidopa/Levodopa 25/100 Mg Tablet PO 08/17/25 13:59 TID DAVID Docusate Sodium 100 mg 07/17/25 14:42 Docusate Sod Liqd 100 Mg/10 Ml Udc PO 08/16/25 20:59 BID PRN constipation Protocol Heparin Sodium (Porcine) 5,000 unit 07/17/25 21:00 07/18/25 08:55 Heparin Sod Inj 5000 Unit/Ml Vial SC 07/31/25 20:59 5,000 unit Q12HR DAVID Administration Cefepime HCl 2 gm/ Sodium 50 mls @ 100 mls/hr 07/17/25 16:00 07/18/25 08:54 Chloride IV 07/24/25 15:59 100 mls/hr Q12HR DAVID Administration Sodium Chloride 500 mls @ 80 mls/hr 07/18/25 13:30 Ns 0.45% IV 07/18/25 19:44 .Q6H15M [facility] Non-Formulary Medication 1 mg 07/18/25 11:30 Rasagiline PO 08/17/25 11:29 DAILY DAVID Pramipexole Dihydrochloride 0.25 mg 07/18/25 14:00 Pramipexole 0.25 Mg Tablet PO 08/17/25 13:59 TID DAVID Plan Mr. Urrutia is a 74-year-old gentleman with a past medical history significant for BPH with chronic Cain who previous followed with Dr. Elizabeth, urologist, and Artemio, Parkinson disease with deep brain stimulator in place followed by Dr. Lloyd on carbidopa levodopa who presented with generalized weakness and anorexia for the past 5 days who presented to [facility] on 07/14 after his cain stopped draining (Cain was changed outpatient on 07/10)he was found to have UTI and was given Keflex 500 mg 3 times daily, but had persistence of symptoms and ground level fall (imaging negative for fractures or bleeds), who was found to be retaining urine and with pyelonephritis on CTAP, admitted for sepsis 2/2 catheter associated UTI with pyelonephritis. Sepsis 2/2 Pyelonephritis 2/2 Catheter associated UTI SOFA score 7 failed outpatient management of keflex, CTAP with Prominent left perinephric stranding, differential would include urinary tract infection, perinephric hemorrhage Lactic acid wnl, procal 1.12, WBC 20 UA with 3+blood, 2+ protein, + leuk esterase, 1000 wbc, and rare bacteria Tx - Ceflalexin 500mg TID (prescribed by [facility] ed, pt recieved total of 4 doses prior to presenting) - Ceftriaxone 2gm x1 (07/17) - Cefepime 2gm q12 hr (07/17- - holding maintenance fluids given edematous legs - Consider broadening abx to jimmy and vanc if pt does not clinically improve post renal MCKAY BPH with chronic cain cain catheter had been changed in the outpatient setting on 07/10 and was draining appropriately until 07/14, when it stopped draining (cain gets exchanged every 4-6 weeks by pcp in [place]) cain was exchanged in the ed and had ~1300 cc output Cr 6.0 on admission (baseline: Unknown) BUN 69, - Nephrology Dr. Gutiérrez consulted, appreciate recs--cont 1/2NS - avoid nephrotoxic agents - renally dose medications Mild Hyperkalemia-resolved Mild hyponatremia -resolved Mild Hyperbillirubinemia-resolved Ground Level Fall without headstrike pt reports having ground level fall without head strike, the fall was unwitnessed however and pt was left on the ground until son came and found him at baseline he is able to ambulate with walker Dx - CT head negative - Cervical CT no acute fractures - PT consulted Parkinsons Disease Deep brainstimulator in place, followed by Dr. Daniels - Carbidopa- levodopa TID Constipation vehicle care specialist reports no BM for the past 5 days - given kayexalate see hypernatremia above - docusate 100mg prn Dispo: sepsis 2/2 pyleonephritis Diet: full liquid Bowel Reg: docusate prn and kayexalate. VTE ppx: heparin 5000 q12 GI ppx: not indicated Code status: FULL The patient's management plan was discussed with my attending physician Dr. Ames. Kirti Ren, PGY-2
[2025-07-18] MEDS: SODIUM CHLORIDE 0.45 % 500 ML 80 ML IV (15:53)
[2025-07-18] MEDS: PRAMIPEXOLE 0.25 MG TABLET PO ×2 (15:54→22:35)
[2025-07-18] MEDS: CARBIDOPA/LEVODOPA 25/100 MG TABLET 2 TAB PO ×2 (15:54→22:35)
--- NOTE | 2025-07-18 16:04 | PC.SS ---
SS received call from DARRYL Araiza who is recommending SNF. SS attempted to contact patient's son but was unsuccessful. SS has sent inquiry to the local SNF using [facility].
--- NOTE | 2025-07-18 16:30 | PC.SS ---
SS follow up note; SS contacted Edenilson patient's son in regards to Discharge plan and informed him that PT was recommending SNF. SS provided SNF choices and patients son would like patient to discharge to [facility] since private room was offered. SS contacted Chikis and she is able to accept patient. SS contacted Luzma from [facility] to inform her that patient was needing authorization. Luzma informed SS she would review and contact SS tomorrow. SS will stand by for further needs.
[2025-07-19] VITALS (8 sets, daily range): BP systolic 122–147; BP diastolic 80–84; PULSE 63–78; RESP 18–20; TEMP 36.1–36.6; O2SAT 92–96
[2025-07-19] MEDS: CARBIDOPA/LEVODOPA 25/100 MG TABLET 2 TAB PO ×2 (05:03→13:54)
[2025-07-19] MEDS: PRAMIPEXOLE 0.25 MG TABLET PO ×2 (05:03→13:54)
[2025-07-19 05:08] LABS: Basophils # (Auto) 0.1 Thou/mm3 (0.0-0.2); Basophils % (Auto) 1 % (0-2.5); Eosinophils # (Auto) 1.0 Thou/mm3 (0.0-0.5); Eosinophils % (Auto) 10 % (0-10); Hematocrit 33.8 % (41.0-53.0); Hemoglobin 11.1 g/dL (13.5-16.0); Immature Granulocytes Auto 0.19 Thou/mm3 (0.00-0.00); Lymphocytes # (Auto) 1.6 Thou/mm3 (1.0-4.8); Lymphocytes % (Auto) 16 % (10-50); Mean Corpuscular HGB Conc 32.8 g/dl (31.0-37.0); Mean Corpuscular Hemoglobin 29.8 pg (25.0-35.0); Mean Corpuscular Volume 91 fL (80-100); Monocytes # (Auto) 0.8 Thou/mm3 (0.0-0.8); Monocytes % (Auto) 8 % (0-12); Neutrophils # (Auto) 6.5 Thou/mm3 (1.8-7.7); Neutrophils % (Auto) 64 % (37-80); Nucleated Red Blood Cell # 0.00 Thou/mm3 (0.00-0.00); Nucleated Red Blood Cell % 0 /100 WBC (0); Platelet Count 252 Thou/mm3 (140-440); RDW Standard Deviation 44.0 fL (35.1-43.9); Red Blood Count 3.72 Miln/mm3 (4.50-5.90); White Blood Count 10.2 Thou/mm3 (3.8-10.6)
[2025-07-19 06:24] LABS: Alanine Aminotransferase < 7 U/L (10-49); Albumin, Serum 3.2 gm/dL (3.4-4.8); Albumin/Globulin Ratio 1.3 (1.2-2.2); Alkaline Phosphatase 106 U/L (46-116); Anion Gap 11 (7-16); Aspartate Amino Transferase 25 U/L (0-34); BUN/Creatinine Ratio 23 Ratio (12-20); Bilirubin,Total 0.7 mg/dL (0.3-1.2); Blood Urea Nitrogen 27 mg/dL (9-23); Calcium 7.9 mg/dL (8.3-10.6); Calcium (Corrected) 8.5 mg/dL (8.5-10.1); Carbon Dioxide 25.5 mMol/L (20.0-31.0); Chloride 108 mMol/L (98-107); Creatinine (Component) 1.2 mg/dL (0.6-1.3); Estimated Creatinine Clearance 67.4 mL/min (>60); Globulin 2.5 gm/dL (2.3-3.5); Glucose 106 mg/dL (74-106); Magnesium 1.8 mg/dL (1.6-2.6); Osmolality,Calculated 291 (275-295); Phosphorous 3.2 mg/dL (2.4-5.1); Potassium 3.4 mMol/L (3.4-5.1); Sodium 144 mMol/L (136-145); Total Protein 5.7 gm/dL (5.7-8.2); eGFR > 60 See Note
[2025-07-19] MEDS: CEFEPIME INJ 2 GM in SODIUM CHLORIDE 0.9% (Popper) 50 ML IV (08:21)
[2025-07-19] MEDS: HEPARIN SOD INJ 5000 UNIT/ML VIAL SC (08:21)
[2025-07-19] MEDS: DOCUSATE SOD LIQD 100 MG/10 ML UDC PO (08:21)
--- NOTE | 2025-07-19 08:44 | ESCONSULT_ITS ---
RE: CANDELARIA MERIDA : 1950 DATE OF CONSULTATION: 07/18/2025 REASON FOR REFERRAL: Acute kidney injury. REFERRING PHYSICIAN: Dr. Manuel. This patient is a 74-year-old gentleman with past medical history significant for Parkinson's disease and BPH with chronic indwelling Brar catheter for a year now, who presented to [facility] yesterday with urinary tract infection and weakness and was found with a creatinine of 6 mg/dL. Apparently, the patient had a change of Brar catheter not too long ago and it stopped draining urine. It was replaced by another Brar catheter while in the emergency room and he started making more urine. Creatinine immediately went down to 4.6 from 6 with the new Brar catheter that was inserted. Most of the history came from his chart as he is a very poor historian. I was asked to see him in consultation for his acute kidney injury. His creatinine went down further to 2.4 from 4.6 yesterday. He is doing much better and has more urine output. The patient also has a history of recurrent urinary tract infection. His urine is already growing gram-negative rods. PAST MEDICAL HISTORY: BPH with chronic Brar catheter for 1 year now, Parkinson's disease. PAST SURGICAL HISTORY: Deep brain stimulator. CURRENT MEDICATIONS: 1. Acetaminophen. 2. Normal saline 1 liter bolus. 3. Calcium chloride. 4. Carbidopa/levodopa 250 mg/100 mg 2 tablets p.o. t.i.d. 5. Heparin 5000 units subcutaneously b.i.d. 6. Rocephin 2 g IV daily. 7. Erie. 8. Pramipexole 0.25 mg p.o. t.i.d. 9. Rasagiline 1 mg p.o. daily. PHYSICAL EXAMINATION: GENERAL: He is awake, answers questions appropriately. VITAL SIGNS: Blood pressure of 114/60, heart rate of 80, respiratory rate of 22. HEENT: Anicteric sclerae. Normocephalic. NECK: Supple. No JVD. CHEST AND LUNGS: Symmetrical expansion. Clear breath sounds. CARDIAC: Without murmur. ABDOMEN: Soft and nontender. EXTREMITIES: No edema. LABORATORY DATA: Hemoglobin 10.9, WBC 11,700, platelet count 153,000. Sodium 142, potassium 3.9, chloride 108, CO2 of 32.7, BUN 45, creatinine 2.4, glucose 88, calcium 8.9, phosphorus 3.6, albumin 3. Abdomen and pelvic CT without IV contrast, prominent left perinephric stranding. Differential would include urinary tract infection. Venous Doppler studies bilateral negative for DVT. ASSESSMENT: 1. Acute kidney injury, most likely secondary to obstructive uropathy with clogged Brar catheter, now replaced by a new one. 2. Urinary tract infection. 3. History of chronic Brar catheter in place. PLAN: I agree with starting him on antibiotic given his UTI. Continue IV fluids as you are doing. We can change current IV to half normal saline as his serum sodium is starting to creep up with normal saline. Continue monitoring his electrolytes, kidney function, potassium level on a daily basis. Continue to monitor his urine volume as well. The patient is already improving and hopefully, kidney function will go back to its baseline. DT: 22:50:10 TT: 23:19:00 Ref: [id number] - TID: [id number] MTDD
--- NOTE | 2025-07-19 09:35 | PC.SS ---
Addendum entered by Allie Mei 07/19/25 10:34: SS follow up note; contacted Chikis from [facility] in regards to providing transportation for patient. [facility]is informed SS they are able to transport patient at 2:30PM. SS updated patient's son, Edenilson and will also update patient's nurse. SS will stand by for further needs. Original Note: SS follow up note; SS was contacted by Luzma from [facility] informing that auth was authorized for patient to discharge to [facility].
[2025-07-19] MEDS: Magnesium Sulfate 4 GM Ivpb 4 GM/50 ML BAG IV (10:08)
--- NOTE | 2025-07-19 11:09 | ESDS_ITS ---
<Statement entered by Charlee Ames MD - 07/26/25 17:36> I reviewed above note and agree with findings and plans. I have also personally examined the patient with medicine team and went over assessment and plan with medical team including dietary internship and resident physician. <Statement entered by Patty Lloyd MD - 07/19/25 20:34> I discussed with and supervised the dietary internship physician who took care of this patient. I personally saw and examined the patient and discussed the assessment and plan with the entire medicine team, including my attending Dr. Ames, I agree with most of the assessment and plan as documented below Patty Lloyd M.D. PGY-3 Planned Discharge Date 07/19/25 DS: Providers Provider Date of admission: 07/17/25 13:43 Primary care physician: Physician Adelaida Primary/Family Admitting Provider: Charlee Ames MD Attending Provider on Admission: Charlee Ames MD Consults: 07/17/25 12:08 Consult to Nephrology Stat Comment: MCKAY Consulting Provider: Zoe Gutiérrez 07/17/25 14:24 Referral Physical Therapy Routine Comment: Physician Instructions: Attending Provider on DC: DR. RONNI MD Discharging Provider: DR. RONNI MD DS: Diagnosis Problem List Completed Was Problem List Reviewed/Reconciled?: Yes Hospital Course Hospital Course Hospital course: Reason for Admission Urinary tract infection (UTI) and acute kidney injury (MCKAY) in the setting of cain catheter malfunction. Pertinent History Parkinson?s disease, on carbidopa/levodopa TID, with deep brain stimulator Benign prostatic hyperplasia (BPH) with chronic indwelling Cain catheter (changed every 4?6 weeks) Hospital Course The patient presented after a recent cain catheter exchange on 07/10/2025 in [facility]. Shortly after, the catheter malfunctioned and was not draining. He was initially evaluated in the [facility] ED, diagnosed with UTI, and discharged on cephalexin 500 mg TID. He subsequently developed worsening fatigue and confusion, as well as a fall (without head strike). On admission, his Cain catheter was found to be obstructed and was replaced, immediately draining 1300 cc of urine. He was diagnosed with post-renal MCKAY, which resolved with buddhist of urinary drainage. He was empirically treated with IV ceftriaxone. Urine culture later grew Pseudomonas aeruginosa, sensitive to ciprofloxacin. Antibiotics were transitioned to ciprofloxacin 500 mg PO BID, with a plan for a total 7-day course (5 more days at discharge). During admission, his mental status improved, and he was clinically stable for discharge. Given his recent functional decline and fall, he was discharged to SNF for continued rehabilitation and monitoring. Pertinent Findings Cain catheter malfunction: post-renal MCKAY, resolved after replacement Urine cultures: Pseudomonas aeruginosa, ciprofloxacin-sensitive Fall: No head strike or acute injury CT head negative and CT cervical spine negative for acute fractures Discharge Diagnoses Complicated urinary tract infection due to Pseudomonas (sensitive to ciprofloxacin) Post-renal acute kidney injury, resolved Parkinson?s disease with deep brain stimulator BPH with chronic cain catheter Fall without head injury Discharge Medications Ciprofloxacin 500 mg PO BID ? 5 more days (to complete 7-day course) Other home medications: [Insert as appropriate] Follow-Up / Recommendations Continue ciprofloxacin to complete course Cain catheter care per routine (change every 4?6 weeks) Monitor for signs of catheter obstruction, UTI, or urinary retention Follow up with urology and primary care as outpatient SNF to provide rehab, fall precautions, and close monitoring of functional status Plan discussed with Dr Lloyd, and Dr. Ronni Manuel MD PGY1 Time Spent with Patient Time attestation: Total time spent providing and/or coordinating discharge services: Time spent: Greater than 30 minutes Exam Vital Signs Temp Pulse Resp BP Pulse Ox O2 Del Method O2 Flow Rate 97 F 65 18 122/80 92 L Room Air 2 07/19/25 08:00 07/19/25 08:00 07/19/25 08:00 07/19/25 08:00 07/19/25 08:00 07/19/25 08:00 07/19/25 04:00 Narrative Exam General: Elderly male. No acute distress, cooperative HEENT: NCAT, No JVD noted. Mucosa moist. Pupils are equal and reactive to light bilaterally Cardiovascular: Normal S1 and S2. Regular rate and rhythm. Respiratory: Lungs are clear to auscultation bilaterally. No wheezing or crackles heard. Abdomen: mildly distended, nontender, normal bowel sounds. : no CVA tenderness, cain in place, dark yellow Skin: Warm to touch, dry, no rashes noted Musculoskeletal: No gross injuries. Able to move all 4 extremities. B/L LE +2 pitting edema Neuro: Alert and oriented x3. No focal neuro deficits. Bilateral hand tremor. Psych: Normal affect and mood Discharge Plan Plan Patient Disposition: Xfer Skilled Nsg Fac (SNF) Disposition Comment: [facility] Prescriptions/Referrals Prescriptions/Med Rec: New ciprofloxacin HCl [Cipro] 500 mg tablet 500 mg PO Q12H Qty: 10 0RF Continued pramipexole 0.25 mg tablet 0.25 mg PO TID rasagiline 1 mg tablet 1 mg PO DAILY carbidopa-levodopa 25-100 mg tablet 2 tab PO TID Referrals: No Primary/Family,Physician [Primary Care Provider] Patient/Caregiver Discharge Instructions Other Discharge Diet Instructions: Please see your PCP within 1 week. Please start taking your new Abx, Ciprofloxacin 500mg twice daily for 5 more days Please continue taking all your home medications. Please change your cain every 4-6 weeks. Print Language: Tanzanian Stand Alone Forms: Lesley Award Info., Patient Portal Info Letter Discharge Order Discharge Orders: Discharge (Routine); Ordered 07/19/25 Ordered By: Patty Lloyd Quality Discharge Quality Measures VTE prophylaxis
== END 2025-07-19 14:40 | disposition skilled nursing facility (03) | DRG 698 ==
LOC: SERX 11:03 → SERHOLD 14:03 → S3SX 16:59 → SERHOLD 07-18 06:02 → S3SX 07-18 06:02
PROVIDERS: Admitting Provider Internal Medicine; Emergency Provider Emergency Medicine; Visit Provider Internal Medicine
DX: T83.518A Infection and inflammatory reaction due to other urinary catheter, initial encounter (principal); A41.52 Sepsis due to Pseudomonas; N12 Tubulo-interstitial nephritis, not specified as acute or chronic; N17.9 Acute kidney failure, unspecified; E87.1 Hypo-osmolality and hyponatremia; E87.0 Hyperosmolality and hypernatremia; N13.8 Other obstructive and reflux uropathy; Z16.29 Resistance to other single specified antibiotic; N40.0 Benign prostatic hyperplasia without lower urinary tract symptoms; G20.A1 Parkinson's disease without dyskinesia, without mention of fluctuations; Y84.6 Urinary catheterization as the cause of abnormal reaction of the patient, or of later complication, without mention of misadventure at the time of the procedure; E87.5 Hyperkalemia; R74.8 Abnormal levels of other serum enzymes; W18.30XA Fall on same level, unspecified, initial encounter; K59.00 Constipation, unspecified; R63.0 Anorexia; N40.1 Benign prostatic hyperplasia with lower urinary tract symptoms
CPT/HCPCS: 36415; 70450; 72125; 74176; 80053; 81001; 82140; 83605; 83735; 83880; 84100; 84145; 84484; 85025; 85610; 85730; 87040; 87077; 87086; 87186; 93005; 93225; 93970; 96361; 96365; 96372; 96375; 97162; 99285; A4314; J0692; J0696; J1644; J3475; J7030; J7050; J7120; A9270

== ENCOUNTER 2025-07-22 12:19 | Observation (INO) | payer OTHER, MEDICAID, SELFPAY ==
[2025-07-22] VITALS (10 sets, daily range): BP systolic 166–191; BP diastolic 92–105; PULSE 69–88; RESP 14–90; TEMP 36.2–37.1; O2SAT 93–99; BMI 30.2; BMI 32.5
--- NOTE | 2025-07-22 12:24 | XR_ITS ---
Examination: AP chest single view Technique one AP portable semiupright chest single view Date and time: July 22, 2025, 1312 hrs. Indications: Chest pain shortness of breath today. Findings: Mild heart failure. Mild to moderate enlargement cardiac contour. Prominent vascular congestion, suspicious for early perihilar edema Suspicious for mild to moderate left pleural effusion Power pack overlies the right chest Prominent osteopenia Impression: Mild heart failure
--- NOTE | 2025-07-22 12:24 | XR_ITS ---
Examination: CTA carotids with intravenous contrast CTA brain, head with intravenous contrast. 2-D sagittal, coronal reconstructions. 3-D reconstructions. Exam date and time: July 22, 2025, 1232 hrs. Indications: Stroke alert, onset focal neurologic deficit today CTDI: vol (mGy) 44.9 DLP: (mGycm) 552 Technique: Multiple CTA axial brain, head carotid images post intravenous contrast injection 75 cc, [id number]. 2-D sagittal, coronal reconstructions. 3-D reconstructions, 3-D post processing including vascular maximum intensity projection images. Low dose protocols were performed. One or more of the following dose reduction techniques were used; automated exposure control, adjustment of the mA and/or KV according to patient size, use of iterative reconstruction technique. Findings: No significant common carotid carotid bifurcation or internal carotid artery stenoses Mildly dominant right vertebral artery in the neck with no critical stenoses Intracranial vertebral arteries basilar artery posterior cerebral branches fill with no large vessel occlusions. Moderate calcification juxtasellar portions internal carotid arteries. M1 segments middle cerebral arteries middle cerebral artery trifurcation vessels anterior cerebral vessels fill with no large vessel occlusions Impression: No significant neck arterial stenoses No cerebral large vessel arterial occlusions or thrombus
--- NOTE | 2025-07-22 12:24 | EDNOTE_ITS ---
ED General RME/HPI General Chief complaint: Altered Mental Status Stated complaint: STROKE Time Seen by Provider: 07/22/25 12:22 Arrival date/time: 07/22/25 12:19 CC: Left-sided facial droop HPI noticed approximately 20 minutes prior to arrival by EMS and EMS report with stable vital signs. Patient states he has no specific complaints. Last known normal was 10 AM this morning is currently 1225. Patient is awake alert oriented x 1. Patient is coming from [place] [facility]. Patient is a full code. Patient has a history of Parkinson's congestive heart failure and a history of falling. Patient denies chest pain shortness of breath difficulty breathing numbness or tingling in face headache blurred vision or seeing spots. Related Data Home Medications ?Medication ?Instructions ?Recorded ?Confirmed carbidopa 25 mg-levodopa 100 mg 2 tab PO TID 07/17/25 07/17/25 tablet pramipexole 0.25 mg tablet 0.25 mg PO TID 07/17/25 rasagiline 1 mg tablet 1 mg PO DAILY 07/17/2507/17 Previous Rx's ?Medication ?Instructions ?Recorded ciprofloxacin HCl 500 mg tablet 500 mg PO Q12H #10 tab s 07/19/25 (Cipro) Allergies Allergy/AdvReac Type Severity Reaction Status Date / Time No Known Allergies Allergy Verified 07/17/25 10:53 Review of Systems Review of Systems Narrative Review of Systems: GEN: No fever, no chills, no weight loss EYES: No discharge, no visual changes, no pain HEENT: No ear pain, no congestion, no sore throat PULM: No shortness of breath, no cough, no congestion CV: No chest pain, no dyspnea on exertion, no palpitations GI: No nausea, no vomiting, no diarrhea, no pain, no constipation : No frequency, no urgency, no dysuria MUSC/SKEL: No joint pain, no back pain SKIN: No rash PSYCH: No hallucinations, no depression HEME/LYMPH: No easy bleeding or bruising tendencies NEURO: No weakness, no headache Past Medical History Past Medical History NEUROLOGIC: Positive Parkinson's Disease (pt has a deep brain stimulator,not active yet) CARDIAC: Positive Hypertension; Negative Congestive Heart Failure RESPIRATORY: Negative Chronic Obstructive Pulmonary Disease (COPD) GENITOURINARY: Negative Renal Disease ENDOCRINE: Negative Diabetes Mellitus Type 1 or Diabetes Mellitus Type 2 OTHER HISTORY: Negative Cancer Surgical History SURGICAL: Positive Neurologic Surgery (deep brain stimulator) Social History SMOKING STATUS: Former smoker ED Exam Narrative Physical exam: [General: Obese appears not in any acute distress Head normocephalic HEENT: Eyes pupils are PERRLA EOMs are intact no entrapment. Mouth pink moist membranes uvula is midline subtle left facial droop. Facial sensory intact. Phonation is normal swallow is symmetrical. Neck is supple nontender no JVD no edema Chest equal chest rise nontender to palpation Respiratory: Clear to auscultation no wheezes crackles or rubs CV: Rate rhythm is regular no murmurs rubs or clicks Abdomen is distended secondary to body habitus soft nontender no masses positive bowel sounds all 4 quadrants Back: No CVA tenderness no spinous process tenderness from cervical spine thoracic and lumbar spine Skin: Intact no petechiae rash induration ulceration or crepitus Extremities: Moving all extremity against resistance cap refill less than 2 seconds neurosensory intact. Strong chief credit officer in upper extremities. Patient is reported is nonambulatory. Neuro: Awake alert oriented x1 Glascow coma 15 no focal deficits] Course Course Course Narrative: Patient's case discussed with teleneurology as requested started on aspirin, admit for TIA versus CVA workup. Resident for Dr. Freitas contacted agrees accept the patient for admission. Quality Measures none Orders Category Date Time Status Bedside Blood Glucose NOW Care 07/22/25 12:24 Active COVID-19 Screening Questionnaire NOW Care 07/22/25 14:29 Active Sales Force Developer NOW Care 07/22/25 12:24 Active Continuous Pulse Oximetry NOW Care 07/22/25 12:24 Completed Decision to Admit X1 Care 07/22/25 14:29 Active EKG (ED ONLY) *Do not use* NOW Care 07/22/25 12:24 Completed In and Out Catheter NEEDED Care 07/22/25 12:24 Active Insert IV NOW Care 07/22/25 12:24 Active NIH Stroke Scale now Care 07/22/25 12:24 Active NPO NOW Care 07/22/25 12:24 Active Nurse Swallow Screen x1 Care 07/22/25 12:24 Active Consult to Neurology / Tele-Neurology Routine Cons 07/22/25 12:[address] angio stroke protocol Stat Exams 07/22/25 12:[address] stroke protocol Stat Exams 07/22/25 12:24 Completed EKG (ED Only) Stat Exams 07/22/25 12:24 Draft XR chest 1V portable Stat Exams 07/22/25 12:24 Completed CBC Stat Lab 07/22/25 12:20 Completed Comprehensive Metabolic Panel Stat Lab 07/22/25 12:20 Completed Drug Screen,Urine Stat Lab 07/22/25 13:14 Completed Magnesium Stat Lab 07/22/25 12:20 Completed Partial Thromboplastin Time Stat Lab 07/22/25 12:20 Completed Prothrombin Time with INR Stat Lab 07/22/25 12:20 Completed Troponin I Stat Lab 07/22/25 12:20 Completed Urinalysis, C/S if Indicated Stat Lab 07/22/25 13:14 Completed Urine Culture Stat Lab 07/22/25 13:14 Received Aspirin Med 07/22/25 14:24 Discontinued 325 mg PO X1 ONE Labetalol IV [Trandate IV] Med 07/22/25 12:24 Active 10 mg IVP Q15M PRN Ondansetron Inj [Zofran Inj] Med 07/22/25 12:24 Active 4 mg IVP Q4HR PRN Oxygen Delivery NOW RT 07/22/25 12:24 Active Vital Signs Vital signs: Vital Signs Pulse Rate 88 07/22/25 12:24 Respiratory Rate 18 07/22/25 12:24 Pulse Oximetry (%) 95 07/22/25 12:24 Oxygen Flow Rate 2 07/22/25 12:24 Discharge Plan Plan Patient Disposition: Other Care w/in Hosp ([facility]) Patient condition on transfer: Stable Problem List Clinical Impression: CVA (cerebral vascular accident) PA/BREASTER Supervising Physician PA/BREASTER Supervising Physician: Tenzin Hetah ENP [facility] Clinical Information Provided by: patient Medical Records reviewed [facility] EKG Interpretation EKG #1: EKG Interpretation: EKG performed at 1252 shows a ventricular rate of 74 QRS 102 QTc 476. Prolonged NJ interval. When compared to old EKG from July 17, 2025 morphology is essentially unchanged other than prolonged NJ interval. Labs Lab(s) Interpretation(s): CBC shows no acute leukocytosis there is a mild anemia with a hemoglobin of 11.9 and hematocrit of 36.9 respectively. No thrombocytopenia Coags within acceptable limits CMP shows a glucose of 110 otherwise no significant electrolyte imbalances renal impairment transaminitis or T. bili elevation Troponin is within acceptable limits. Imaging Imaging Interpretation(s): CT of the head is interpreted by me read by radiology as negative for any acute finding. CTA head neck is interpreted by me read by radiology shows there is no neck stenosis, no large vessel occlusions. Medication Administration(s) Medication Administration History Acetaminophen (Acetaminophen 500 Mg Tablet) 1,000 mg PO Q6H PRN PRN Reason: Fever >99.9 Stop: 08/21/25 14:34 Aspirin (Aspirin 325 Mg Tablet) 325 mg PO DAILY DAVID Stop: 08/22/25 08:59 Heparin Sodium (Porcine) (Heparin Sod Inj 5000 Unit/Ml Vial) 5,000 unit SC Q8HR DAVID Stop: 08/05/25 14:59 Sodium Chloride (Ns) 1,000 mls @ 75 mls/hr IV .[id number] DAVID Stop: 08/21/25 14:44 Labetalol HCl (Labetalol Inj 5 Mg/Ml Vial 20 Ml) 10 mg IVP Q15M PRN PRN Reason: HYPER Ondansetron HCl (Ondansetron Inj 2 Mg/Ml Inj 2 Ml) 4 mg IVP Q4HR PRN PRN Reason: NAUSEA OR VOMITING Stop: 08/21/25 12:23 Pantoprazole Sodium (Pantoprazole Inj 40 Mg Vial) 40 mg IVP Q12HR DAVID Stop: 08/21/25 20:59 Discontinued Medications Aspirin (Aspirin 325 Mg Tablet) 325 mg PO X1 ONE Stop: 07/22/25 14:25 Last Admin: 07/22/25 14:56 Dose: Not Given Documented By: OA Non-Admin Reason: Patient Refused Diagnosis Differential Diagnosis ED Complaint MDM: CVA TIA Mckeon's palsy
--- NOTE | 2025-07-22 12:24 | EKG_ITS ---
[facility] Test Date: 2025-07-22 Pat Name: CANDELARIA MERIDA Department: Room: - Gender: Male Guest Relation Officer: : 1950 Requested By: Tenzin Gonzalez Order Number: [id number] Reading MD: Tenzin Gonzalez Measurements Intervals [place] Rate: 74 P: ME: QRS: 35 QRSD: 102 T: 8 QT: 448 QTc: 500 Interpretive Statements ATRIAL FIBRILLATION INCOMPLETE RIGHT BUNDLE BRANCH BLOCK [90+ ms QRS DURATION, TERMINAL R IN V1/V2, 40+ ms S IN I/aVL/V4/V5/V6] PROLONGED QT INTERVAL Compared to ECG 07/17/2025 10:35:30 Prolonged QT interval now present Sinus rhythm no longer present Sinus arrhythmia no longer present ST (T wave) deviation no longer present /store/S0/[id number]/ecg/[id number].pdf
--- NOTE | 2025-07-22 12:24 | XR_ITS ---
Examination: CT brain head without contrast. 2-D sagittal coronal reconstructions Date and time of exam:July 22, 2025, 1220 hrs., Comparison 07/17/2025 Indications: Stroke alert, onset left-sided facial droop left side of body weakness this morning CTDI: vol (mGy):55 DLP: (mGycm):1177 Technique: Multiple CT axial sections of the brain have been obtained, 5 mm slice thickness. Contrast has not been administered. 2-D sagittal, coronal reconstructions have been obtained Low dose protocols were performed. One or more of the following dose reduction techniques were used; automated exposure control, adjustment of the mA and/or KV according to patient size, use of iterative reconstruction technique. Findings: No significant ventricular enlargement. Artifacts generated by the patient's and neural transmitter wires Intra-axial or extra-axial hemorrhage density is not seen. No mass effect or midline shift Basal cisterns are not remarkable. Fourth ventricle is midline. Cranial vault intact. Impression: No interval acute hemorrhage, mass effect or midline shift
[2025-07-22 12:47] LABS: Basophils # (Auto) 0.1 Thou/mm3 (0.0-0.2); Basophils % (Auto) 1 % (0-2.5); Eosinophils # (Auto) 0.6 Thou/mm3 (0.0-0.5); Eosinophils % (Auto) 6 % (0-10); Hematocrit 36.9 % (41.0-53.0); Hemoglobin 11.9 g/dL (13.5-16.0); Immature Granulocytes Auto 0.45 Thou/mm3 (0.00-0.00); Lymphocytes # (Auto) 2.1 Thou/mm3 (1.0-4.8); Lymphocytes % (Auto) 20 % (10-50); Mean Corpuscular HGB Conc 32.2 g/dl (31.0-37.0); Mean Corpuscular Hemoglobin 29.1 pg (25.0-35.0); Mean Corpuscular Volume 90 fL (80-100); Monocytes # (Auto) 0.7 Thou/mm3 (0.0-0.8); Monocytes % (Auto) 7 % (0-12); Neutrophils # (Auto) 6.5 Thou/mm3 (1.8-7.7); Neutrophils % (Auto) 63 % (37-80); Nucleated Red Blood Cell # 0.00 Thou/mm3 (0.00-0.00); Nucleated Red Blood Cell % 0 /100 WBC (0); Platelet Count 332 Thou/mm3 (140-440); RDW Standard Deviation 42.8 fL (35.1-43.9); Red Blood Count 4.09 Miln/mm3 (4.50-5.90); White Blood Count 10.4 Thou/mm3 (3.8-10.6)
[2025-07-22 12:54] LABS: INR 1.0 (0.9-1.3); Partial Thromboplastin Time 28.7 Seconds (22.0-36.0); Prothrombin Time 11.3 Seconds (9.0-12.2)
[2025-07-22 13:02] LABS: Albumin, Serum 3.5 gm/dL (3.4-4.8); Albumin/Globulin Ratio 1.3 (1.2-2.2); Alkaline Phosphatase 106 U/L (46-116); Anion Gap 8 (7-16); Aspartate Amino Transferase 26 U/L (0-34); BUN/Creatinine Ratio 16 Ratio (12-20); Bilirubin,Total 0.4 mg/dL (0.3-1.2); Blood Urea Nitrogen 19 mg/dL (9-23); Calcium 8.2 mg/dL (8.3-10.6); Calcium (Corrected) 8.6 mg/dL (8.5-10.1); Carbon Dioxide 25.8 mMol/L (20.0-31.0); Chloride 105 mMol/L (98-107); Creatinine (Component) 1.2 mg/dL (0.6-1.3); Globulin 2.8 gm/dL (2.3-3.5); Glucose 110 mg/dL (74-106); Magnesium 1.7 mg/dL (1.6-2.6); Osmolality,Calculated 280 (275-295); Potassium 4.0 mMol/L (3.4-5.1); Sodium 139 mMol/L (136-145); Total Protein 6.3 gm/dL (5.7-8.2); Troponin I < 0.002 ng/mL (0.0-0.045); eGFR > 60 See Note
[2025-07-22 13:08] LABS: Alanine Aminotransferase < 7 U/L (10-49)
[2025-07-22 13:25] LABS: Collection Type, Urine Clean Catch
[2025-07-22 13:56] LABS: Bacteria,Urine Rare; Bilirubin,Urine Negative (Negative); Blood,Urine 3+ (Negative); Clarity,Urine Turbid (Clear/Hazy); Color,Urine Lt-Yellow (Lt Yel-Yel); Glucose, Urine Negative (Negative); Ketones,Urine Negative (Negative); Leukocyte Esterase,Urine Positive (Negative); Nitrite,Urine Negative (Negative); PH,Urine 6.5 (5.0-7.0); Protein,Urine Trace (Neg - Trace); RBC,Urine 79 /hpf (0-3); Specific Gravity,Urine 1.039 (1.001-1.035); Squamous Epithelial Cell,Urine < 1 /hpf (0-5); Urobilinogen,Urine Negative mg/dL (0.0-1.0); WBC,Urine 42 /hpf (0-5)
[2025-07-22 13:57] LABS: Culture Indicated,Urine Yes
--- NOTE | 2025-07-22 14:24 | PD.TNEURO ---
Tele Neuro Consultation Consultation Date 07/22/25 Most Recent Vital Signs Last Vital Signs Pulse 71 07/22/25 12:24 Resp 18 07/22/25 12:24 Pulse Ox 95 07/22/25 12:24 O2 Flow Rate 2 07/22/25 12:24 Laboratory-Coagulation Panel PT 11.3 Seconds (9.0-12.2) 07/22/25 12:20 INR 1.0 (0.9-1.3) 07/22/25 12:20 APTT 28.7 Seconds (22.0-36.0) 07/22/25 12:20 Consultation Narrative [facility] Tele[facility]urology Consult Services Patient Name: Kem Urrutia Date of : 1950 Identification Number: Date of Service: 07/22/2025 12:15:53 Diagnosis: ? G45.9 - Transient cerebral ischemic attack, unspecified Impression: ? 74 years old right handed male with history of CHF and Parkinson's disease s/p DBS presents to the ED after he was noticed with left sided weakness and left facial droop, now improved. Current NIHSS is 1 for slight left facial droop. NCCT showed no acute abnormalities. CTA head/neck also obtained showed no evidence of LVO. Possible TIA vs stroke. Recommend to initiate aspirin 325 mg now and to admit for further work-up. Our recommendations are outlined below. Recommendations: ? Stroke/Telemetry Floor ? Neuro Checks (Q4) ? Bedside Swallow Eval ? DVT Prophylaxis ? IV Fluids, Normal Saline ? Head of Bed 30 Degrees ? Euglycemia and Avoid Hyperthermia (PRN Acetaminophen) ? Initiate or continue Aspirin 325 MG daily Sign Out: ? Discussed with Emergency Department Provider Advanced Imaging: CTA Head and Neck Completed. LVO:No Patient is not a candidate for RODERICK Metrics: Last Known Well: 07/22/2025 10:00:00 Dispatch Time: 07/22/2025 12:15:53 Arrival Time: 07/22/2025 12:19:00 Initial Response Time: 07/22/2025 12:15:53 Symptoms: Left sided weakness. Initial patient interaction: 07/22/2025 12:44:14 NIHSS Assessment Completed: 07/22/2025 12:49:16 Patient is not a candidate for Thrombolytic. Thrombolytic Medical Decision: 07/22/2025 12:49:23 Patient was not deemed candidate for Thrombolytic because of following reasons: Resolved symptoms . CT Head: I personally reviewed all the CT images that were available to me and it showed: no acute abnormalities Primary Provider Notified of Diagnostic Impression and Management Plan on: 07/22/2025 14:19:29 History of Present Illness: Patient is a 74 year old Male. Patient was brought by EMS for symptoms of Left sided weakness. Patient is a 74 years old right handed male with history of CHF and Parkinson's disease s/p DBS who presents to the ED from [facility] due to stroke like symptoms. LKW at 10:00. Per EMS report, patient was found with left facial droop and left sided weakness by [facility] staff. No other history is available at this time. Past Medical History: ? There is no history of Stroke Other PMH: CHF, Parkinson's, brain stimulator Medications: No Anticoagulant use No Antiplatelet use Reviewed EMR for current medications Allergies: NKDA Social History: Drug Use: No Family History: There is no family history of premature cerebrovascular disease pertinent to this consultation ROS : 14 Points Review of Systems was performed and was negative except mentioned in HPI. Past Surgical History: There Is No Surgical History Contributory To Today?s Visit Examination: BP(173/94), Pulse(74), Blood Glucose(129) 1A: Level of Consciousness - Alert; keenly responsive + 0 1B: Ask Month and Age - Both Questions Right + 0 1C: Blink Eyes & Squeeze Hands - Performs Both Tasks + 0 2: Test Horizontal Extraocular Movements - Normal + 0 3: Test Visual Crespo - No Visual Loss + 0 4: Test Facial Palsy (Use Grimace if Obtunded) - Minor paralysis (flat nasolabial fold, smile asymmetry) + 1 5A: Test Left Arm Motor Drift - No Drift for 10 Seconds + 0 5B: Test Right Arm Motor Drift - No Drift for 10 Seconds + 0 6A: Test Left Leg Motor Drift - No Drift for 5 Seconds + 0 6B: Test Right Leg Motor Drift - No Drift for 5 Seconds + 0 7: Test Limb Ataxia (FNF/Heel-Leija) - No Ataxia + 0 8: Test Sensation - Normal; No sensory loss + 0 9: Test Language/Aphasia - Normal; No aphasia + 0 10: Test Dysarthria - Normal + 0 11: Test Extinction/Inattention - No abnormality + 0 NIHSS Score: 1 Pre-Morbid Modified Mary Scale: Unable to assess Spoke with : Dr. Heath This consult was conducted in real time using interactive audio and video technology. Patient was informed of the technology being used for this visit and agreed to proceed. Patient located in hospital and provider located at home/office setting. Patient is being evaluated for possible acute neurologic impairment and high probability of imminent or life-threatening deterioration. I spent total of 40 minutes providing care to this patient, including time for face to face visit via telemedicine, review of medical records, imaging studies and discussion of findings with providers, the patient and/or family. Dr Aniyah De Dios [facility] For Inpatient follow-up with [facility] physician please call [facility] at . As we are not an outpatient service for any post hospital discharge needs please contact the hospital for assistance. If you have any questions for the [facility] physicians or need to reconsult for clinical or diagnostic changes please contact us via [facility] at . Signature : Aniyah De Dios
[2025-07-22 14:29] LABS: Amphetamine/Methamp Scrn,U Negative (Negative); Barbiturate Screen,Urine Negative (Negative); Benzodiazepines Screen,Urine Negative (Negative); Benzoylecgonine Screen, Ur Negative (Negative); Fentanyl Screen,Urine Positive (Negative); Opiate Screen,Urine Negative (Negative); THC Screen,Urine Negative (Negative)
--- NOTE | 2025-07-22 15:06 | ESHP_ITS ---
<Statement entered by Kevan Sauer MD - 07/22/25 16:24> Kem Urrutia is a 74-year-old male with a past medical history of Parkinson's s/p DBS on carbidopa levodopa, BPH with chronic Brar who presented from [facility] after being found unresponsive in the morning. Per report, patient had left-sided facial droop 20 minutes prior to arrival. In ED, teleneurology evaluated patient and NIH SS score of 1 at that time. Patient himself does not recall events. CT head negative for hemorrhage, CTA head/neck negative for LVO, CXR shows mild heart failure, and EKG reads A-fib but appears to be sinus with first-degree AV block and incomplete RBBB. Given DBS, will reach out to son regarding details to see if it is MRI-compatible. Otherwise, will start aspirin per teleneuro recommendations, obtain LDL, A1c, TSH, and echo and consult in- house neurology. Will resume ciprofloxacin from SNF as they state he has a few more days to complete and resume home Parkinson medications. ----- Note reviewed and agree with care plan as documented. Please refer to the note below for further details. Plan discussed with attending physician Dr. Edward Sauer MD PGY-2 Internal Medicine Documentation for date of: 07/22/25 HPI History of Present Illness History of present illness: HPI: 74-year-old male past medical history of Parkinson's status post deep brain stimulation implantation, combined systolic and diastolic congestive heart failure, constipation, obstructive and reflux uropathy, chronic Brar cath, BPH, and falls presented from [facility] on 07/22/2025 after staff member found the patient unresponsive. Per [place] staff, the patient was unresponsive for approximately 7 minutes to sternal rub after they brought him his lunch at 11:15 AM until he became responsive again. His last known well was at 10 AM. The patient was admitted for stroke versus TIA versus syncopal workup. ED course: * Vitals on arrival: Blood pressure 189/100, pulse of 88, respiratory rate 18, satting at 95% on 2 L nasal cannula. * Imaging: Chest x-ray showed mild to moderate enlargement of the cardiac contour. Prominent vascular congestion suspicious for early perihilar edema. There was also suspicion for mild to moderate left pleural effusion. DBS device was visualized. Mild heart failure. Head CT was negative for acute hemorrhage or infarct. Head and neck CTA was negative for any large vessel arterial occlusions or thrombi. * EKG performed at 1252 shows a ventricular rate of 74 QRS 102 QTc 476. Prolonged MI interval. * Labs: Hemoglobin 11.9, blood chemistry within normal limits, urine positive for blood and white blood cells. Urine tox positive for fentanyl. Troponins negative * Besides imaging and lab draws no other intervention was performed in the ED. Aspirin was ordered in the ED but the patient refused. History: Obtained from chart review * Past medical history: Parkinson's status post deep brain stimulation implantation, combined systolic and diastolic congestive heart failure, constipation, obstructive and reflux uropathy, chronic Brar cath, BPH, and falls * Surgical history: Deep brain stimulation surgery May 19 2019 at [place] * Social history: Former smoker, lives in * Allergies: No known drug allergies Home Medications: * Carbidopa levodopa 25-100 mg 2 tablets 3 times a day * Ciprofloxacin 500 mg twice daily for 5-day course started on 07/19/2025 * Pramipexole to hydrochloride 0.251 tablet 3 times daily for Parkinson's * Rasagiline mesilate 1 mg daily for Parkinson's * Dulcolax suppository 10 mg as needed for constipation * Fleet enema every 72 hours as needed for constipation * Milk of Magnesia 30 mL every 72 hours as needed for constipation Review of Systems Review of Systems Narrative Review of Systems: Review of Systems: * General: Denies fevers, chills. * HEENT: Denies headache, congestion, or sore throat. * Cardiac: Denies chest pain or palpitations. * Pulmonary: Denies shortness of breath or cough. * GI: Denies nausea, vomiting, diarrhea, constipation, melena, or hematochezia. * : Denies dysuria, hematuria, frequency, or urgency. * MSK: Denies pain in the extremities, joints, or myalgias. * Neuro: Denies weakness, numbness, vision changes, or speech difficulty. Exam Vital Signs Pulse Resp Pulse Ox O2 Flow Rate 71 18 95 2 07/22/25 12:24 07/22/25 12:24 07/22/25 12:24 07/22/25 12:24 Narrative Exam General: Awake and in no acute distress. Conversational and non-toxic appearing. Neurologic: GCS 15. Alert and oriented x3, no gross neurological deficit, and patient able to move all 4 extremities. HEENT: Normocephalic, atraumatic, mucous membranes moist. Pupils reactive to light. Heart: Regular rate and rhythm, normal S1 and S2, no murmurs. Lungs: Clear to auscultation bilaterally with no wheezing or crackles. Abdomen: Soft, nondistended, nontender, positive bowel sounds. No guarding or rebound tenderness. Extremities: Grade 3 tremor in the left upper extremity and left lower extremity. No edema. 2+ radial and dorsalis pedis pulses bilaterally. Skin: Warm. Dry. No rash or ecchymoses. Results: Labs 07/22/25 12:20 07/22/25 12:20 Labs: Short CBC 07/22/25 Range/Units 12:20 WBC 10.4 (3.8-10.6) Thou/mm3 Hgb 11.9 L (13.5-16.0) g/dL Hct 36.9 L (41.0-53.0) % Plt Count 332 D (140-440) Thou/mm3 BMP 07/22/25 12:20 Sodium 139 Potassium 4.0 Chloride 105 Carbon Dioxide 25.8 BUN 19 Creatinine 1.2 Glucose 110 H Calcium 8.2 L Cardiac Enzymes 07/22/25 Range/Units 12:20 Troponin I < 0.002 (0.0-0.045) ng/mL Liver Function 07/22/25 Range/Units 12:20 Total Bilirubin 0.4 (0.3-1.2) mg/dL AST 26 (0-34) U/L ALT < 7 L (10-49) U/L Alkaline Phosphatase 106 (46-116) U/L Albumin 3.5 (3.4-4.8) gm/dL Urine 07/22/25 Range/Units 13:14 Urine Color Lt-Yellow (Lt Yel-Yel) Urine Clarity Turbid A (Clear/Hazy) Urine pH 6.5 (5.0-7.0) Ur Specific [place] 1.039 H (1.001-1.035) Urine Protein Trace (Neg - Trace) Urine Glucose (UA) Negative (Negative) Quality Measures Quality Measures none Advance care planning discussed with:: patient Medications Home Medications and Allergies Home Medications ?Medication ?Instructions ?Recorded ?Confirmed ?Type carbidopa 25 mg-levodopa 100 mg 2 tab PO TID 07/17/25 07/22/25 History tablet pramipexole 0.25 mg tablet 0.25 mg PO TID 07/17/25 History rasagiline 1 mg tablet 1 mg PO DAILY 07/17/2507/22 History Allergies Allergy/AdvReac Type Severity Reaction Status Date / Time No Known Allergies Allergy Verified 07/17/25 10:53 Visit Medications Acetaminophen (Acetaminophen 500 Mg Tablet) 1,000 mg PO Q6H PRN PRN Reason: Fever >99.9 Stop: 08/21/25 14:34 Aspirin (Aspirin 325 Mg Tablet) 325 mg PO DAILY DAVID Stop: 08/22/25 08:59 Heparin Sodium (Porcine) (Heparin Sod Inj 5000 Unit/Ml Vial) 5,000 unit SC Q8HR DAVID Stop: 08/05/25 14:59 Sodium Chloride (Ns) 1,000 mls @ 75 mls/hr IV .[id number] [facility] Stop: 08/21/25 14:44 Labetalol HCl (Labetalol Inj 5 Mg/Ml Vial 20 Ml) 10 mg IVP Q15M PRN PRN Reason: HYPER Ondansetron HCl (Ondansetron Inj 2 Mg/Ml Inj 2 Ml) 4 mg IVP Q4HR PRN PRN Reason: NAUSEA OR VOMITING Stop: 08/21/25 12:23 Pantoprazole Sodium (Pantoprazole Inj 40 Mg Vial) 40 mg IVP Q12HR [facility] Stop: 08/21/25 20:59 Discontinued Medications Aspirin (Aspirin 325 Mg Tablet) 325 mg PO X1 ONE Stop: 07/22/25 14:25 Last Admin: 07/22/25 14:56 Dose: Not Given Assessment & Plan Plan Summary: 74-year-old male past medical history of Parkinson's status post deep brain stimulation implantation, combined systolic and diastolic congestive heart failure, constipation, obstructive and reflux uropathy, chronic Brar cath, BPH, and falls presented from [facility] on 07/22/2025 after staff member found the patient unresponsive. Patient was admitted for stroke versus TIA versus syncopal workup. #Altered mental status secondary to ischemic stroke versus hemorrhagic stroke versus transient ischemic attack versus syncopal event * Patient was unresponsive for 7 minutes after being found by staff member at 11:15 AM morning of 07/22/2025. Last known well was 10 AM that same morning. * Head CTA negative * Patient had no focal neurological deficits on exam * Patient had no murmurs on exam, may make syncopal event due to obstructive cardiomyopathy less likely Plan: * Telemetry floor * Neurochecks every 4 hours * Swallow eval * Aspiration precautions * Aspirin 325 mg daily, patient refusing * Echocardiogram * MRI, will determine if DBS implantation device is safe * Permissive hypertension, keep below 185/110 #History of Parkinson's #History of deep brain stimulation surgery * Patient has DBS device, placed 7 years ago per patient Plan: * Resume home carbidopa levodopa 25-10 2 tablets 3 times a day, pramipexole hydrochloride 0.25 mg 3 times a day, rasagiline mesilate 1 mg daily #Chronic constipation * History of chronic constipation Plan: * Resume home Dulcolax, Fleet enema, milk of magnesia #Chronic combined systolic and diastolic heart failure * Per SNF medical chart review, the patient has history of chronic combined systolic and diastolic heart failure * Medication review the patient is not taking any medications for this issue Plan: * Sitter initiating guideline directed medical therapy after stroke workup #Obstructive uropathy #BPH #UTI * Patient is a history of obstructive uropathy with a chronic Brar catheter * Patient was recently hospitalized for UTI and MCKAY in the setting of Brar catheter malfunction * Patient's urine is positive for blood and white blood cells Plan: * Urine culture pending * Continue ciprofloxacin 500 mg twice daily until 07/24/2025 Hospital Maintenance: DVT ppx: Heparin 5000 units SQ every 8 hours GI ppx: Pantoprazole 40 mg every 12 hours Diet: N.p.o. IV lines: Peripheral IV Brar: Chronic Brar Code status: Full code Dispo: Admitted for stroke versus TIA versus syncopal episode workup. Gathering information about DBS device and safety with MRI. Echo ordered. Patient refusing aspirin. Patient was seen and discussed with my attending physician Dr. Edward ARREGUIN and my senior resident Dr. Cristiane ARREGUIN PGY-2. Jeremiah Judd DO PGY-1.
--- NOTE | 2025-07-22 15:06 | PD.RESHP ---
Documentation for date of: 07/22/25 HPI History of Present Illness History of present illness: HPI: 74-year-old male past medical history of Parkinson's status post deep brain stimulation implantation, combined systolic and diastolic congestive heart failure, constipation, obstructive and reflux uropathy, chronic Brar cath, BPH, and falls presented from [facility] on 07/22/2025 after staff member found the patient unresponsive. Per [place] staff, the patient was unresponsive for approximately 7 minutes to sternal rub after they brought him his lunch at 11:15 AM until he became responsive again. His last known well was at 10 AM. The patient was admitted for stroke versus TIA versus syncopal workup. ED course: Vitals on arrival: Blood pressure 189/100, pulse of 88, respiratory rate 18, satting at 95% on 2 L nasal cannula. Imaging: Chest x-ray showed mild to moderate enlargement of the cardiac contour. Prominent vascular congestion suspicious for early perihilar edema. There was also suspicion for mild to moderate left pleural effusion. DBS device was visualized. Mild heart failure. Head CT was negative for acute hemorrhage or infarct. Head and neck CTA was negative for any large vessel arterial occlusions or thrombi. EKG performed at 1252 shows a ventricular rate of 74 QRS 102 QTc 476. Prolonged MT interval. Labs: Hemoglobin 11.9, blood chemistry within normal limits, urine positive for blood and white blood cells. Urine tox positive for fentanyl. Troponins negative Besides imaging and lab draws no other intervention was performed in the ED. Aspirin was ordered in the ED but the patient refused. History: Obtained from [facility] chart review Past medical history: Parkinson's status post deep brain stimulation implantation, combined systolic and diastolic congestive heart failure, constipation, obstructive and reflux uropathy, chronic Brar cath, BPH, and falls Surgical history: Deep brain stimulation surgery May 19 2019 at [facility] Social history: Former smoker, lives in [facility] Allergies: No known drug allergies Home Medications: Carbidopa levodopa 25-100 mg 2 tablets 3 times a day Ciprofloxacin 500 mg twice daily for 5-day course started on 07/19/2025 Pramipexole to hydrochloride 0.251 tablet 3 times daily for Parkinson's Rasagiline mesilate 1 mg daily for Parkinson's Dulcolax suppository 10 mg as needed for constipation Fleet enema every 72 hours as needed for constipation Milk of Magnesia 30 mL every 72 hours as needed for constipation Review of Systems Review of Systems Narrative Review of Systems: Review of Systems: General: Denies fevers, chills. HEENT: Denies headache, congestion, or sore throat. Cardiac: Denies chest pain or palpitations. Pulmonary: Denies shortness of breath or cough. GI: Denies nausea, vomiting, diarrhea, constipation, melena, or hematochezia. : Denies dysuria, hematuria, frequency, or urgency. MSK: Denies pain in the extremities, joints, or myalgias. Neuro: Denies weakness, numbness, vision changes, or speech difficulty. Exam Vital Signs Pulse Resp Pulse Ox O2 Flow Rate 71 18 95 2 07/22/25 12:24 07/22/25 12:24 07/22/25 12:07/22/25 12:24 Narrative Exam General: Awake and in no acute distress. Conversational and non-toxic appearing. Neurologic: GCS 15. Alert and oriented x3, no gross neurological deficit, and patient able to move all 4 extremities. HEENT: Normocephalic, atraumatic, mucous membranes moist. Pupils reactive to light. Heart: Regular rate and rhythm, normal S1 and S2, no murmurs. Lungs: Clear to auscultation bilaterally with no wheezing or crackles. Abdomen: Soft, nondistended, nontender, positive bowel sounds. No guarding or rebound tenderness. Extremities: Grade 3 tremor in the left upper extremity and left lower extremity. No edema. 2+ radial and dorsalis pedis pulses bilaterally. Skin: Warm. Dry. No rash or ecchymoses. Results: Labs 07/22/25 12:20 07/22/25 12:20 Labs: Short CBC 07/22/25 Range/Units 12:20 WBC 10.4 (3.8-10.6) Thou/mm3 Hgb 11.9 L (13.5-16.0) g/dL Hct 36.9 L (41.0-53.0) % Plt Count 332 D (140-440) Thou/mm3 BMP 07/22/25 12:20 Sodium 139 Potassium 4.0 Chloride 105 Carbon Dioxide 25.8 BUN 19 Creatinine 1.2 Glucose 110 H Calcium 8.2 L Cardiac Enzymes 07/22/25 Range/Units 12:20 Troponin I < 0.002 (0.0-0.045) ng/mL Liver Function 07/22/25 Range/Units 12:20 Total Bilirubin 0.4 (0.3-1.2) mg/dL AST 26 (0-34) U/L ALT < 7 L (10-49) U/L Alkaline Phosphatase 106 (46-116) U/L Albumin 3.5 (3.4-4.8) gm/dL Urine 07/22/25 Range/Units 13:14 Urine Color Lt-Yellow (Lt Yel-Yel) Urine Clarity Turbid A (Clear/Hazy) Urine pH 6.5 (5.0-7.0) Ur Specific [place] 1.039 H (1.001-1.035) Urine Protein Trace (Neg - Trace) Urine Glucose (UA) Negative (Negative) Quality Measures Quality Measures none Advance care planning discussed with:: patient Medications Home Medications and Allergies Home Medications ?Medication ?Instructions ?Recorded ?Confirmed ?Type carbidopa 25 mg-levodopa 100 mg 2 tab PO TID 07/17/25 07/22/25 History tablet pramipexole 0.25 mg tablet 0.25 mg PO TID 07/17/25 07/22/25 History rasagiline 1 mg tablet 1 mg PO DAILY 07/17/25 07/22/25 History Allergies Allergy/AdvReac Type Severity Reaction Status Date / Time No Known Allergies Allergy Verified 07/17/25 10:53 Visit Medications Acetaminophen (Acetaminophen 500 Mg Tablet) 1,000 mg PO Q6H PRN PRN Reason: Fever >99.9 Stop: 08/21/25 14:34 Aspirin (Aspirin 325 Mg Tablet) 325 mg PO DAILY [facility] Stop: 08/22/25 08:59 Heparin Sodium (Porcine) (Heparin Sod Inj 5000 Unit/Ml Vial) 5,000 unit SC Q8HR [facility] Stop: 08/05/25 14:59 Sodium Chloride (Ns) 1,000 mls @ 75 mls/hr IV .[id number] [facility] Stop: 08/21/25 14:44 Labetalol HCl (Labetalol Inj 5 Mg/Ml Vial 20 Ml) 10 mg IVP Q15M PRN PRN Reason: HYPER Ondansetron HCl (Ondansetron Inj 2 Mg/Ml Inj 2 Ml) 4 mg IVP Q4HR PRN PRN Reason: NAUSEA OR VOMITING Stop: 08/21/25 12:23 Pantoprazole Sodium (Pantoprazole Inj 40 Mg Vial) 40 mg IVP Q12HR DAVID Stop: 08/21/25 20:59 Discontinued Medications Aspirin (Aspirin 325 Mg Tablet) 325 mg PO X1 ONE Stop: 07/22/25 14:25 Last Admin: 07/22/25 14:56 Dose: Not Given Assessment & Plan Plan Summary: 74-year-old male past medical history of Parkinson's status post deep brain stimulation implantation, combined systolic and diastolic congestive heart failure, constipation, obstructive and reflux uropathy, chronic Brar cath, BPH, and falls presented from [facility] on 07/22/2025 after staff member found the patient unresponsive. Patient was admitted for stroke versus TIA versus syncopal workup. #Altered mental status secondary to ischemic stroke versus hemorrhagic stroke versus transient ischemic attack versus syncopal event Patient was unresponsive for 7 minutes after being found by [facility] staff member at 11:15 AM morning of 07/22/2025. Last known well was 10 AM that same morning. Head CTA negative Patient had no focal neurological deficits on exam Patient had no murmurs on exam, may make syncopal event due to obstructive cardiomyopathy less likely Plan: Telemetry floor Neurochecks every 4 hours Swallow eval Aspiration precautions Aspirin 325 mg daily, patient refusing Echocardiogram MRI, will determine if DBS implantation device is safe Permissive hypertension, keep below 185/110 #History of Parkinson's #History of deep brain stimulation surgery Patient has DBS device, placed 7 years ago per patient Plan: Resume home carbidopa levodopa 25-10 2 tablets 3 times a day, pramipexole hydrochloride 0.25 mg 3 times a day, rasagiline mesilate 1 mg daily #Chronic constipation History of chronic constipation Plan: Resume home Dulcolax, Fleet enema, milk of magnesia #Chronic combined systolic and diastolic heart failure Per [facility] medical chart review, the patient has history of chronic combined systolic and diastolic heart failure Medication review the patient is not taking any medications for this issue Plan: Sitter initiating guideline directed medical therapy after stroke workup #Obstructive uropathy #BPH #UTI Patient is a history of obstructive uropathy with a chronic Brar catheter Patient was recently hospitalized for UTI and MCKAY in the setting of Brar catheter malfunction Patient's urine is positive for blood and white blood cells Plan: Urine culture pending Continue ciprofloxacin 500 mg twice daily until 07/24/2025 Hospital Maintenance: DVT ppx: Heparin 5000 units SQ every 8 hours GI ppx: Pantoprazole 40 mg every 12 hours Diet: N.p.o. IV lines: Peripheral IV Brar: Chronic Brar Code status: Full code Dispo: Admitted for stroke versus TIA versus syncopal episode workup. Gathering information about DBS device and safety with MRI. Echo ordered. Patient refusing aspirin. Patient was seen and discussed with my attending physician Dr. Edward ARREGUIN and my senior resident Dr. Cristiane ARREGUIN PGY-2. Jeremiah Judd DO PGY-1.
--- NOTE | 2025-07-22 16:36 | ECHO_ITS ---
Transthoracic Echo Report Ht (in): 71 Wt (lb): 217 Exam Location: Echo Lab Status: Inpatient Tours Hostess: Ashley Mensah Indications: Procedure Performed: BP: 155 / 89 HR: 90 MEASUREMENTS (Male / Female) Normal Values 2D ECHO LV Diastolic Diameter PLAX 4.8 cm 4.2 - 5.9 / 3.9 - 5.3 cm LV Systolic Diameter PLAX 3.0 cm IVS Diastolic Thickness 1.2 cm 0.6 - 1.0 / 0.6 - 0.9 cm LVPW Diastolic Thickness 1.1 cm 0.6 - 1.0 / 0.6 - 0.9 cm LV Relative Wall Thickness 0.5 LVOT Diameter 2.2 cm LA Volume Index 16.9 cm?/m? 16 - 28 cm?/m? Ascending Aorta Diameter 3.0 cm M-MODE AV Cusp Separation MM 1.6 cm DOPPLER AV Peak Velocity 101.0 cm/s AV Peak Gradient 4.1 mmHg AV Mean Gradient 2.0 mmHg AV Velocity Time Integral 20.1 cm LVOT Peak Velocity 77.8 cm/s LVOT Peak Gradient 2.4 mmHg LVOT Velocity Time Integral 13.7 cm LVOT Cardiac Index 2087.9 cm?/min?m? AV Area Cont Eq vti 2.6 cm? AV Area Cont Eq pk 2.9 cm? MV Area PHT 3.1 cm? Mitral E Point Velocity 43.5 cm/s Mitral A Point Velocity 60.0 cm/s Mitral E to A Ratio 0.7 TR Peak Velocity 191.7 cm/s TR Peak Gradient 14.7 mmHg PV Peak Velocity 69.2 cm/s PV Peak Gradient 1.9 mmHg FINDINGS Left Ventricle Normal left ventricular size, wall thickness, systolic function with no obvious regional wall motion abnormalities. There is grade I diastolic dysfunction of the left ventricle (impaired relaxation pattern). The ejection fraction is visually estimated at 50-55%. Right Ventricle The right ventricle is normal in size and systolic function. Left Atrium The left atrium is normal by two-dimensional, color flow and Doppler imaging with no structural abnormalities, no thrombus formation present. Right Atrium The right atrium is normal by two-dimensional imaging, color flow and Doppler imaging with no structural abnormalities, no thrombus formation present. Atrial Septum No patent foramen ovale demonstrated by agitated saline injection. Aorta The aorta is normal by two-dimensional, color flow and Doppler interrogation. Mitral Valve The mitral valve is normal by two-dimensional, color flow and Doppler interrogation. There is no significant mitral valve regurgitation, stenosis or prolapse. Aortic Valve Aortic valve sclerosis without stenosis.Mild aortic valve regurgitation. Tricuspid Valve The tricuspid valve is normal by two-dimensional, color flow and Doppler interrogation. There is trace tricuspid valve regurgitation. Pulmonic Valve The pulmonic valve is not well visualized. Trivial pulmonic valve regurgitation. Vessels The pulmonary artery appears normal. The inferior vena cava pulmonary and hepatic veins appear normal. Pericardium The pericardium is normal by two-dimensional imaging. There is no significant pericardial effusion. Other Findings Off axis due to poor windows CONCLUSIONS Indication:Stroke versus TIA versus syncopal episode Off axis due to poor window. Bubble study negative for any PFO or ASD. Consider RITHCIE if high index of suspicion to rule out any LA or LA thrombus. Normal left ventricular size and function. Grade I diastolic dysfunction.estimated ejection fraction is 50- 55%. Normal right ventricular size and function. RVSP normal. Trace TR Mild aortic valve sclerosis without stenosis.Mild aortic valve regurgitation. No clear pericardial effusion. Benjamin Crockett (Electronically Signed) Final Date: 23 July 2025 19:21
--- NOTE | 2025-07-22 17:48 | PC.NURSE ---
called MD sukhwinder argueta to verify is LR or NS should be administered, will fix orders, also asked if pt is stricklty NPO per keep NPO
[2025-07-22] MEDS: SODIUM CHLORIDE 0.9% 1000 ML 1,000 ML 75 ML IV (17:51)
[2025-07-22] MEDS: HEPARIN SOD INJ 5000 UNIT/ML VIAL SC (17:51)
[2025-07-23] VITALS (8 sets, daily range): BP systolic 115–166; BP diastolic 65–92; PULSE 66–85; RESP 12–22; TEMP 36–36.9; O2SAT 92–99; BMI 32.7; BMI 13.0
[2025-07-23 05:33] LABS: Basophils # (Auto) 0.1 Thou/mm3 (0.0-0.2); Basophils % (Auto) 1 % (0-2.5); Eosinophils # (Auto) 0.7 Thou/mm3 (0.0-0.5); Eosinophils % (Auto) 8 % (0-10); Hematocrit 37.9 % (41.0-53.0); Hemoglobin 12.5 g/dL (13.5-16.0); Immature Granulocytes Auto 0.44 Thou/mm3 (0.00-0.00); Lymphocytes # (Auto) 1.9 Thou/mm3 (1.0-4.8); Lymphocytes % (Auto) 19 % (10-50); Mean Corpuscular HGB Conc 33.0 g/dl (31.0-37.0); Mean Corpuscular Hemoglobin 29.7 pg (25.0-35.0); Mean Corpuscular Volume 90 fL (80-100); Monocytes # (Auto) 0.6 Thou/mm3 (0.0-0.8); Monocytes % (Auto) 6 % (0-12); Neutrophils # (Auto) 5.8 Thou/mm3 (1.8-7.7); Neutrophils % (Auto) 61 % (37-80); Nucleated Red Blood Cell # 0.00 Thou/mm3 (0.00-0.00); Nucleated Red Blood Cell % 0 /100 WBC (0); Platelet Count 334 Thou/mm3 (140-440); RDW Standard Deviation 42.0 fL (35.1-43.9); Red Blood Count 4.21 Miln/mm3 (4.50-5.90); White Blood Count 9.5 Thou/mm3 (3.8-10.6)
[2025-07-23] MEDS: SODIUM CHLORIDE 0.9% 1000 ML 1,000 ML 75 ML IV (05:47)
[2025-07-23] MEDS: HEPARIN SOD INJ 5000 UNIT/ML VIAL SC ×3 (05:48→22:43)
[2025-07-23 05:58] LABS: Alanine Aminotransferase 22 U/L (10-49); Albumin, Serum 3.4 gm/dL (3.4-4.8); Albumin/Globulin Ratio 1.2 (1.2-2.2); Alkaline Phosphatase 94 U/L (46-116); Anion Gap 8 (7-16); Aspartate Amino Transferase 23 U/L (0-34); BUN/Creatinine Ratio 13 Ratio (12-20); Bilirubin,Total 0.5 mg/dL (0.3-1.2); Blood Urea Nitrogen 14 mg/dL (9-23); Calcium 8.3 mg/dL (8.3-10.6); Calcium (Corrected) 8.8 mg/dL (8.5-10.1); Carbon Dioxide 28.7 mMol/L (20.0-31.0); Cardiac Risk Estimate 6.4 RATIO (4.0-6.7); Chloride 106 mMol/L (98-107); Cholesterol 180 mg/dL (132-200); Creatinine (Component) 1.1 mg/dL (0.6-1.3); Estimated Creatinine Clearance 70.7 mL/min (>60); Globulin 2.8 gm/dL (2.3-3.5); Glucose 93 mg/dL (74-106); HDL Cholesterol 28 mg/dL (40-60); LDL Cholesterol,Calculated 117 mg/dL (0-130); Magnesium 1.6 mg/dL (1.6-2.6); Osmolality,Calculated 285 (275-295); Phosphorous 2.7 mg/dL (2.4-5.1); Potassium 4.0 mMol/L (3.4-5.1); Sodium 143 mMol/L (136-145); Thyroid Stimulating Hormone 5.10 uIU/mL (0.55-4.78); Total Protein 6.2 gm/dL (5.7-8.2); Triglycerides 176 mg/dL (30-150); eGFR > 60 See Note
[2025-07-23 05:59] LABS: Glucose Estimated Average 126 mg/dL (80-131); Hemoglobin A1C 6.0 % Hgb (4.8-6.0)
--- NOTE | 2025-07-23 06:30 | EKG_ITS ---
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
--- NOTE | 2025-07-23 07:00 | XR_ITS ---
Examination: CT brain head without contrast. 2-D sagittal coronal reconstructions Date and time of exam:July 23, 2025 0741 hours, comparison July 22, 2025, 12:30 PM INDICATIONS: Stroke alert, onset left-sided facial droop and left-sided body weakness beginning yesterday CTDI: vol (mGy):55 DLP: (mGycm):1167 Technique: Multiple CT axial sections of the brain have been obtained, 5 mm slice thickness. Contrast has not been administered. 2-D sagittal, coronal reconstructions have been obtained Low dose protocols were performed. One or more of the following dose reduction techniques were used; automated exposure control, adjustment of the mA and/or KV according to patient size, use of iterative reconstruction technique. Findings: No significant ventricular enlargement. Again noted significant artifacts from the patient's neural transmitter leads Intra-axial or extra-axial hemorrhage density is not seen. No mass effect or midline shift Basal cisterns are not remarkable. Fourth ventricle is midline. Cranial vault intact. Impression: No interval acute hemorrhage, mass effect or midline shift
--- NOTE | 2025-07-23 10:07 | PD.RESHP ---
Documentation for date of: 07/23/25 Exam Vital Signs Temp Pulse Resp BP Pulse Ox O2 Del Method O2 Flow Rate 98.5 F 66 12 155/89 H 95 Room Air 2 07/23/25 04:00 07/23/25 04:00 07/23/25 04:00 07/23/25 04:00 07/23/25 04:00 07/23/25 04:00 07/22/25 16:39 Wound Wound description lt. heel: Wound description: stuff and things Present on admission: Yes Results: Labs 07/23/25 05:15 07/23/25 05:15 Labs: Short CBC 07/22/25 07/23/25 Range/Units 12:20 05:15 WBC 10.4 9.5 (3.8-10.6) Thou/mm3 Hgb 11.9 L 12.5 L (13.5-16.0) g/dL Hct 36.9 L 37.9 L (41.0-53.0) % Plt Count 332 D 334 (140-440) Thou/mm3 BMP 07/22/25 07/23/25 12:20 05:15 Sodium 139 143 Potassium 4.0 4.0 Chloride 105 106 Carbon Dioxide 25.8 28.7 BUN 19 14 Creatinine 1.2 1.1 Glucose 110 H 93 Calcium 8.2 L 8.3 Cardiac Enzymes 07/22/25 Range/Units 12:20 Troponin I < 0.002 (0.0-0.045) ng/mL Liver Function 07/22/25 07/23/25 Range/Units 12:20 05:15 Total Bilirubin 0.4 0.5 (0.3-1.2) mg/dL AST 26 23 (0-34) U/L ALT < 7 L 22 (10-49) U/L Alkaline Phosphatase 106 94 (46-116) U/L Albumin 3.5 3.4 (3.4-4.8) gm/dL Urine 07/22/25 Range/Units 13:14 Urine Color Lt-Yellow (Lt Yel-Yel) Urine Clarity Turbid A (Clear/Hazy) Urine pH 6.5 (5.0-7.0) Ur Specific [place] 1.039 H (1.001-1.035) Urine Protein Trace (Neg - Trace) Urine Glucose (UA) Negative (Negative) Quality Measures Quality Measures none Medications Home Medications and Allergies Home Medications ?Medication ?Instructions ?Recorded ?Confirmed ?Type carbidopa 25 mg-levodopa 100 mg 2 tab PO TID 07/17/25 07/22/25 History tablet pramipexole 0.25 mg tablet 0.25 mg PO TID 07/17/25 07/22/25 History rasagiline 1 mg tablet 1 mg PO DAILY 07/17/25 07/22/25 History Allergies Allergy/AdvReac Type Severity Reaction Status Date / Time No Known Allergies Allergy Verified 07/17/25 10:53 Visit Medications Acetaminophen (Acetaminophen 500 Mg Tablet) 1,000 mg PO Q6H PRN PRN Reason: Fever >99.9 Stop: 08/21/25 14:34 Aspirin (Aspirin 325 Mg Tablet) 325 mg PO DAILY [facility] Stop: 08/22/25 08:59 Carbidopa/Levodopa (Carbidopa/Levodopa 25/100 Mg Tablet) 2 tab PO TID [facility] Stop: 08/21/25 21:59 Last Admin: 07/23/25 05:48 Dose: Not Given Ciprofloxacin (Ciprofloxacin Hcl 250 Mg Tablet) 500 mg PO Q12HR [facility] Stop: 07/24/25 21:01 Last Admin: 07/22/25 17:50 Dose: Not Given Heparin Sodium (Porcine) (Heparin Sod Inj 5000 Unit/Ml Vial) 5,000 unit SC Q8HR [facility] Stop: 08/05/25 14:59 Last Admin: 07/23/25 05:48 Dose: 5,000 unit Sodium Chloride (Ns) 1,000 mls @ 75 mls/hr IV .[id number] [facility] Stop: 08/21/25 14:44 Last Admin: 07/23/25 05:47 Dose: 75 mls/hr Labetalol HCl (Labetalol Inj 5 Mg/Ml Vial 20 Ml) 10 mg IVP Q15M PRN PRN Reason: HYPER Non-Formulary Medication (Rasagiline) 1 mg PO DAILY [facility] Stop: 08/22/25 08:59 Ondansetron HCl (Ondansetron Inj 2 Mg/Ml Inj 2 Ml) 4 mg IVP Q4HR PRN PRN Reason: NAUSEA OR VOMITING Stop: 08/21/25 12:23 Pantoprazole Sodium (Pantoprazole Inj 40 Mg Vial) 40 mg IVP Q12HR [facility] Stop: 08/21/25 20:59 Last Admin: 07/23/25 08:52 Dose: 40 mg Pramipexole Dihydrochloride (Pramipexole 0.25 Mg Tablet) 0.25 mg PO TID [facility] Stop: 08/21/25 21:59 Last Admin: 07/23/25 05:48 Dose: Not Given Discontinued Medications Aspirin (Aspirin 325 Mg Tablet) 325 mg PO X1 ONE Stop: 07/22/25 14:25 Last Admin: 07/22/25 14:56 Dose: Not Given Lactated Ringer's (Lactated Ringers) 1,000 mls @ 80 mls/hr IV .[id number] [facility] Stop: 07/24/25 17:11 Last Admin: 07/22/25 17:50 Dose: Not Given Labetalol HCl (Labetalol Inj 5 Mg/Ml Vial 20 Ml) 10 mg IVP Q15M PRN PRN Reason: HYPER Assessment & Plan Problem List (1) MCKAY (acute kidney injury): Status: Acute (2) Acute pyelonephritis: Status: Acute (3) Complicated urinary tract infection: Status: Acute (4) CVA (cerebral vascular accident): Status: Acute
[2025-07-23] MEDS: CIPROFLOXACIN HCL 250 MG TABLET 500 MG PO ×2 (11:23→22:33)
--- NOTE | 2025-07-23 13:28 | PC.SS ---
Patient is alert/oriented. Patient's son provided a brief history of patient. Patient is a short term resident at [facility]. Patient will return to facility once stable. Patient's son, Edenilson Doyle, confirmed he is the alt medical decision maker. Patient is pending repeat CT of the head and pending Neuro recs. Alt medical decision maker: sonEdenilson,
[2025-07-23] MEDS: CARBIDOPA/LEVODOPA 25/100 MG TABLET 2 TAB PO ×2 (13:56→22:34)
[2025-07-23] MEDS: PRAMIPEXOLE 0.25 MG TABLET PO ×2 (13:56→22:34)
[2025-07-23] MEDS: CLOPIDOGREL BISULFATE 75 MG TABLET PO (13:59)
--- NOTE | 2025-07-23 14:14 | PD.ADDPROG ---
Addendum Progress Note Addendum Date of report being addended: 07/23/25 Narrative: I Roxy Leon MD reviewed the note and agree with the resident's assessment & plan with modifications/additions/exceptions as below. I have personally reviewed labs, imaging, home meds/prior records, examined the patient, formulated and discussed management plan with the IM team. 74-year-old male with history of Parkinson's disease with neurostimulation device in place, urinary retention found unresponsive in SNF and noted to have left-sided facial droop. NIHSS score of 1 on arrival and patient unable to recall the events CT head unremarkable, CTA negative for LVO, neurology recommended further workup to rule out stroke. Patient neuromodulator not compatible with MRI device, pending echocardiogram, repeat EKG did reveal ectopic atrial rhythm, resume medications for Parkinson disease. Will empirically treat as TIA with aspirin, high intensity statin and 3 weeks of Plavix therapy.
[2025-07-23] MEDS: VALSARTAN 40 MG TABLET PO (15:14)
--- NOTE | 2025-07-23 15:39 | ESCONSULT_ITS ---
HPI Data of Consult Consult date: 07/23/25 Requesting Physician: Roxy Leon MD Admitting Provider: Roxy Leon MD Attending Provider: Roxy Leon MD Primary Care Provider: Physician No Primary/Family Consult Narrative Reason for consult: stroke w/up History of present illness: This 74-year-old male past medical history of Parkinson's status post deep brain stimulation implantation, combined systolic and diastolic congestive heart failure, constipation, obstructive and reflux uropathy, chronic Brar cath, BPH, and falls presented from [facility] on 07/22/2025 after staff member found the patient unresponsive.Per report, patient had left-sided facial droop 20 minutes prior to arrival. Vitals on arrival: Blood pressure 189/100, pulse of 88, respiratory rate 18, satting at 95% on 2 L nasal cannula. Imaging: Chest x-ray showed mild to moderate enlargement of the cardiac contour. Prominent vascular congestion suspicious for early perihilar edema. There was also suspicion for mild to moderate left pleural effusion. DBS device was visualized. Mild heart failure. Head CT was negative for acute hemorrhage or infarct. Head and neck CTA was negative for any large vessel arterial occlusions or thrombi. EKG performed at 1252 shows a ventricular rate of 74 QRS 102 QTc 476. Prolonged MI interval. Labs: Hemoglobin 11.9, blood chemistry within normal limits, urine positive for blood and white blood cells. Urine tox positive for fentanyl. Troponin negative Besides imaging and lab draws no other intervention was performed in the ED. Aspirin was ordered in the ED but the patient refused. Past medical history: Parkinson's status post deep brain stimulation implantation, combined systolic and diastolic congestive heart failure, constipation, obstructive and reflux uropathy, chronic Brar cath, BPH, and falls Surgical history: [facility] brain [facility] Allergies: No known drug allergies Social history: Former smoker, lives in SNF Home Medications: Carbidopa levodopa 25-100 mg 2 tablets 3 times a day, Ciprofloxacin 500 mg twice daily for 5-day course started on 07/19/2025, Pramipexole to hydrochloride 0.251 tablet 3 times daily for Parkinson's, Rasagiline mesilate 1 mg daily for Parkinson's ,Dulcolax suppository 10 mg as needed for constipation, Fleet enema every 72 hours as needed for constipation ,Milk of Magnesia 30 mL every 72 hours as needed for constipation Repeat CT brain was negative. Echo showed Normal left ventricular size and function. Grade I diastolic dysfunction.estimated ejection fraction is 50- 55%. Normal right ventricular size and function. RVSP normal. Trace TR Mild aortic valve sclerosis without stenosis.Mild aortic valve regurgitation. No clear pericardial effusion.Recommended to continue aspirin, and atorvastatin. DC Plavix. Less likely to be stroke, and parkinsons disease appears to be stable. cc:: cc: Roxy Leon MD Review of Systems Review of Systems Systems Reviewed: All systems reviewed, normal except as documented Past Medical History Past Medical History NEUROLOGIC: Positive Parkinson's Disease (pt has a deep brain stimulator,not active yet) CARDIAC: Positive Hypertension; Negative Congestive Heart Failure RESPIRATORY: Negative Chronic Obstructive Pulmonary Disease (COPD) GENITOURINARY: Negative Renal Disease ENDOCRINE: Negative Diabetes Mellitus Type 1 or Diabetes Mellitus Type 2 OTHER HISTORY: Negative Cancer Surgical History SURGICAL: Positive Neurologic Surgery (deep brain stimulator) Social History SMOKING STATUS: Former smoker Exam Vital Signs Temp Pulse Resp BP Pulse Ox O2 Del Method O2 Flow Rate 97.8 F 85 20 130/77 96 Room Air 2 07/23/25 12:00 07/23/25 15:14 07/23/25 12:00 07/23/25 15:14 07/23/25 12:00 07/23/25 12:00 07/22/25 16:39 Narrative Exam General: Awake and in no acute distress. Conversational and non-toxic appearing. Neurologic: GCS 15. Alert and oriented x2, no gross neurological deficit, and patient able to move all 4 extremities. HEENT: Normocephalic, atraumatic, mucous membranes moist. Pupils reactive to light. Heart: Regular rate and rhythm, normal S1 and S2, no murmurs. Lungs: Clear to auscultation bilaterally with no wheezing or crackles. Abdomen: Soft, nondistended, nontender, positive bowel sounds. No guarding or rebound tenderness. Extremities: Grade 3 tremor in the left upper extremity and left lower extremity. No edema. 2+ radial and dorsalis pedis pulses bilaterally. Skin: Warm. Dry. No rash or ecchymoses. Results Labs 07/24/25 04:22 07/24/25 04:22 Labs: Short CBC 07/23/25 Range/Units 05:15 WBC 9.5 (3.8-10.6) Thou/mm3 Hgb 12.5 L (13.5-16.0) g/dL Hct 37.9 L (41.0-53.0) % Plt Count 334 (140-440) Thou/mm3 BMP 07/23/25 05:15 Sodium 143 Potassium 4.0 Chloride 106 Carbon Dioxide 28.7 BUN 14 Creatinine 1.1 Glucose 93 Calcium 8.3 Liver Function 07/23/25 Range/Units 05:15 Total Bilirubin 0.5 (0.3-1.2) mg/dL AST 23 (0-34) U/L ALT 22 (10-49) U/L Alkaline Phosphatase 94 (46-116) U/L Albumin 3.4 (3.4-4.8) gm/dL Quality Measures Quality Measures VTE prophylaxis Advance care planning discussed with:: other Medications Home Medications and Allergies Home Medications ?Medication ?Instructions ?Recorded ?Confirmed ?Type carbidopa 25 mg-levodopa 100 mg 2 tab PO TID 07/17/25 07/22/25 History tablet pramipexole 0.25 mg tablet 0.25 mg PO TID 07/17/25 History rasagiline 1 mg tablet 1 mg PO DAILY 07/17/2507/22 History Allergies Allergy/AdvReac Type Severity Reaction Status Date / Time No Known Allergies Allergy Verified 07/17/25 10:53 Visit Medications Acetaminophen (Acetaminophen 500 Mg Tablet) 1,000 mg PO Q6H PRN PRN Reason: Fever >99.9 Stop: 08/21/25 14:34 Aspirin (Aspirin Ec 81 Mg Tabec) 81 mg PO DAILY [facility] Stop: 08/23/25 08:59 Atorvastatin Calcium (Atorvastatin Calcium 20 Mg Tablet) 40 mg PO HS [facility] Stop: 08/22/25 20:59 Carbidopa/Levodopa (Carbidopa/Levodopa 25/100 Mg Tablet) 2 tab PO TID [facility] Stop: 08/21/25 21:59 Last Admin: 07/23/25 13:56 Dose: 2 tab Ciprofloxacin (Ciprofloxacin Hcl 250 Mg Tablet) 500 mg PO Q12HR [facility] Stop: 07/28/25 16:59 Last Admin: 07/23/25 11:23 Dose: 500 mg Clopidogrel Bisulfate (Clopidogrel Bisulfate 75 Mg Tablet) 75 mg PO QDAY [facility] Stop: 08/22/25 13:29 Last Admin: 07/23/25 13:59 Dose: 75 mg Heparin Sodium (Porcine) (Heparin Sod Inj 5000 Unit/Ml Vial) 5,000 unit SC Q8HR [facility] Stop: 08/05/25 14:59 Last Admin: 07/23/25 13:55 Dose: 5,000 unit Non-Formulary Medication (Rasagiline) 1 mg PO DAILY [facility] Stop: 08/22/25 08:59 Ondansetron HCl (Ondansetron Inj 2 Mg/Ml Inj 2 Ml) 4 mg IVP Q4HR PRN PRN Reason: NAUSEA OR VOMITING Stop: 08/21/25 12:23 Pantoprazole Sodium (Pantoprazole Inj 40 Mg Vial) 40 mg IVP QDAY [facility] Stop: 08/23/25 08:59 Pramipexole Dihydrochloride (Pramipexole 0.25 Mg Tablet) 0.25 mg PO TID [facility] Stop: 08/21/25 21:59 Last Admin: 07/23/25 13:56 Dose: 0.25 mg Valsartan (Valsartan 40 Mg Tablet) 40 mg PO QDAY [facility] Stop: 08/22/25 14:29 Last Admin: 07/23/25 15:14 Dose: 40 mg Discontinued Medications Aspirin (Aspirin 325 Mg Tablet) 325 mg PO X1 ONE Stop: 07/22/25 14:25 Last Admin: 07/22/25 14:56 Dose: Not Given Aspirin (Aspirin 325 Mg Tablet) 325 mg PO DAILY [facility] Stop: 08/22/25 08:59 Last Admin: 07/23/25 11:23 Dose: 325 mg Sodium Chloride (Ns) 1,000 mls @ 75 mls/hr IV .[id number] [facility] Stop: 08/21/25 14:44 Last Admin: 07/23/25 05:47 Dose: 75 mls/hr Lactated Ringer's (Lactated Ringers) 1,000 mls @ 80 mls/hr IV .[id number] [facility] Stop: 07/24/25 17:11 Last Admin: 07/22/25 17:50 Dose: Not Given Labetalol HCl (Labetalol Inj 5 Mg/Ml Vial 20 Ml) 10 mg IVP Q15M PRN PRN Reason: HYPER Labetalol HCl (Labetalol Inj 5 Mg/Ml Vial 20 Ml) 10 mg IVP Q15M PRN PRN Reason: HYPER Pantoprazole Sodium (Pantoprazole Inj 40 Mg Vial) 40 mg IVP Q12HR [facility] Stop: 08/21/25 20:59 Last Admin: 07/23/25 08:52 Dose: 40 mg Assessment & Plan Plan This 74-year-old male past medical history of Parkinson's status post deep brain stimulation implantation, CHF, constipation, obstructive and reflux uropathy, chronic Brar cath, BPH, and falls presented from [facility] on 07/22/2025 after staff member found the patient unresponsive. Patient was admitted for stroke versus TIA versus syncopal workup. #Stroke, ruled out -Patient was unresponsive for 7 minutes after being found by [facility] staff member at 11:15 AM morning of 07/22/2025. Last known well was 10 AM that same morning. Head CTA negative Patient had no focal neurological deficits on exam Patient had no murmurs on exam, may make syncopal event due to obstructive cardiomyopathy less likely. NIHSS:[address] brain was negative. Echo showed Normal left ventricular size and function. Grade I diastolic dysfunction.estimated ejection fraction is 50- 55%. Normal right ventricular size and function. RVSP normal. Trace TR Mild aortic valve sclerosis without stenosis.Mild aortic valve regurgitation. No clear pericardial effusion. Plan: Recommended to continue aspirin, and atorvastatin. DC Plavix. Less likely to be a stroke and Parkinson disease is stable #History of Parkinson #History of deep brain stimulation Plan: Continue with carbidopa-levodopa 2 tablets 3 times a day, pramipexole 0.25 mg 3 times daily, rasagiline 1 mg daily #Chronic constipation #Chronic combined systolic and diastolic Heart failure #Obstructive uropathy #BPH #UTI Rest of the management as per primary care team. Plan of care discussed with neurologist, Dr Prema Bridges MD, PGY 3 Attending Provider Attestation/Addendum I have seen and examined the patient at the bedside and I agreed with the resident's findings, assessment and plan of care. Reassurance given to the patient regarding the negative CT head x 2. MRI could not be done as the DBS is MRI incompatible. He is stable from Parkinson's point of view with the current settings of DBS and current home meds.
--- NOTE | 2025-07-23 16:24 | ESPR_ITS ---
<Statement entered by Kevan Sauer MD - 07/23/25 19:12> No acute overnight events. Seen and examined at bedside and patient resting comfortably in bed. Repeat CT head in a.m. negative for any interval changes. Pending neuro recommendations. Echo obtained and pending read. Otherwise, we will continue current management. Vital signs stable, CBC unremarkable, CHEM panel showed LDL 117, A1c of 6%. Anticipate discharge within next 24 to 48 hours. ----- Note reviewed and agree with care plan as documented. Please refer to the note below for further details. Plan discussed with attending physician Dr. Edward Sauer MD PGY-2 Internal Medicine Documentation for date of: 07/23/25 Subjective Subjective Interval history: Patient was seen and examined at bedside. No acute overnight events. It was determined that the patient's DBS device is not safe for MRI. Repeat head CT was negative. Repeat EKG showed an ectopic atrial pacemaker evidence by multiple different P wave morphologies. Hemoglobin 12.5 and stable, blood chemistry stable, tropes negative. Vitals significant for stage II hypertension 155/89, rest are within normal limits. Exam Vital Signs Temp Pulse Resp BP Pulse Ox O2 Del Method O2 Flow Rate 97.8 F 85 20 130/77 96 Room Air 2 07/23/25 12:00 07/23/25 15:14 07/23/25 12:00 07/23/25 15:14 07/23/25 12:00 07/23/25 12:00 07/22/25 16:39 Narrative Exam General: Awake and in no acute distress. Conversational and non-toxic appearing. Neurologic: GCS 15. Alert and oriented x3, no gross neurological deficit, and patient able to move all 4 extremities. HEENT: Normocephalic, atraumatic, mucous membranes moist. Pupils reactive to light. Heart: Regular rate and rhythm, normal S1 and S2, no murmurs. Lungs: Clear to auscultation bilaterally with no wheezing or crackles. Abdomen: Soft, nondistended, nontender, positive bowel sounds. No guarding or rebound tenderness. Extremities: Grade 2 tremor in the left upper extremity and left lower extremity. No edema. 2+ radial and dorsalis pedis pulses bilaterally. Skin: Warm. Dry. No rash or ecchymoses. Objective Labs 07/23/25 05:15 07/23/25 05:15 Labs: Laboratory Results - last 24 hr 07/23/25 05:15 WBC 9.5 RBC 4.21 L Hgb 12.5 L Hct 37.9 L MCV 90 MCH 29.7 MCHC 33.0 RDW Std Deviation 42.0 Plt Count 334 Neut % (Auto) 61 Lymph % (Auto) 19 [place] % (Auto) 6 Eos % (Auto) 8 Baso % (Auto) 1 Neut # (Auto) 5.8 Lymph # (Auto) 1.9 [place] # (Auto) 0.6 Eos # (Auto) 0.7 H Baso # (Auto) 0.1 Immature Gran # (Auto) 0.44 H Absolute Nucleated RBC 0.00 Immature Gran % 5 H Nucleated RBC % 0 Sodium 143 Potassium 4.0 Chloride 106 Carbon Dioxide 28.7 Anion Gap 8 BUN 14 Creatinine 1.1 Estim Creat Clear Calc 70.7 eGFR > 60 BUN/Creatinine Ratio [address] Glu mg/dL 126 Hemoglobin A1c 6.0 Calculated Osmolality 285 Calcium 8.3 Corrected Calcium 8.8 Phosphorus 2.7 Magnesium 1.6 Total Bilirubin 0.5 AST 23 ALT 22 Alkaline Phosphatase 94 Total Protein 6.2 Albumin 3.4 Globulin 2.8 Albumin/Globulin Ratio 1.2 Triglycerides 176 H Cholesterol 180 LDL Cholesterol, Calc 117 HDL Cholesterol 28 L Cholesterol/HDL Ratio 6.4 TSH 5.10 H Quality Measures Quality Measures VTE prophylaxis Advance care planning discussed with:: patient Assessment & Plan Assessment Current Active Medications: Generic Name Dose Route Start Last Admin Trade Name Freq PRN Reason Stop Dose Admin Acetaminophen 1,000 mg 07/22/25 14:35 Acetaminophen 500 Mg Tablet PO 08/21/25 14:34 Q6H PRN Fever >99.9 Aspirin 81 mg 07/24/25 09:00 Aspirin Ec 81 Mg Tabec PO 08/23/25 08:59 DAILY DAVID Atorvastatin Calcium 40 mg 07/23/25 21:00 Atorvastatin Calcium 20 Mg Tablet PO 08/22/25 20:59 HS DAVID Carbidopa/Levodopa 2 tab 07/22/25 22:00 07/23/25 13:56 Carbidopa/Levodopa 25/100 Mg Tablet PO 08/21/25 21:59 2 tab TID DAVID Administration Ciprofloxacin 500 mg 07/22/25 17:00 07/23/25 11:23 Ciprofloxacin Hcl 250 Mg Tablet PO 07/28/25 16:59 500 mg Q12HR DAVID Administration Clopidogrel Bisulfate 75 mg 07/23/25 13:30 07/23/25 13:59 Clopidogrel Bisulfate 75 Mg Tablet PO 08/22/25 13:29 75 mg QDAY DAVID Administration Heparin Sodium (Porcine) 5,000 unit 07/22/25 15:00 07/23/25 13:55 Heparin Sod Inj 5000 Unit/Ml Vial SC 08/05/25 14:59 5,000 unit Q8HR DAVID Administration Non-Formulary Medication 1 mg 07/23/25 09:00 Rasagiline PO 08/22/25 08:59 DAILY DAVID Ondansetron HCl 4 mg 07/22/25 12:24 Ondansetron Inj 2 Mg/Ml Inj 2 Ml IVP 08/21/25 12:23 Q4HR PRN NAUSEA OR VOMITING Pantoprazole Sodium 40 mg 07/24/25 09:00 Pantoprazole Inj 40 Mg Vial IVP 08/23/25 08:59 QDAY DAVID Pramipexole Dihydrochloride 0.25 mg 07/22/25 22:00 07/23/25 13:56 Pramipexole 0.25 Mg Tablet PO 08/21/25 21:59 0.25 mg TID DAVID Administration Valsartan 40 mg 07/23/25 14:30 07/23/25 15:14 Valsartan 40 Mg Tablet PO 08/22/25 14:29 40 mg QDAY DAVID Administration Plan Summary: 74-year-old male past medical history of Parkinson's status post deep brain stimulation implantation, combined systolic and diastolic congestive heart failure, constipation, obstructive and reflux uropathy, chronic Brar cath, BPH, and falls presented from [facility] nursing [facility] on 07/22/2025 after staff member found the patient unresponsive. Patient was admitted for stroke versus TIA versus syncopal workup. #Altered mental status secondary to ischemic stroke versus hemorrhagic stroke versus transient ischemic attack versus syncopal event * Patient was unresponsive for 7 minutes after being found by [facility] staff member at 11:15 AM morning of 07/22/2025. Last known well was 10 AM that same morning. * Head CTA negative * Patient had no focal neurological deficits on exam * Patient had no murmurs on exam, may make syncopal event due to obstructive cardiomyopathy less likely * Patient's DBS device was determined to not be safe for MRI, repeat head CT was done and was negative * Echo showed that bubble study was negative for PFO or ASD, grade 1 diastolic dysfunction EF 50-55%, mild aortic valve sclerosis without stenosis, mild aortic valve regurgitation. Plan: * Neurology and cardiology on board * Telemetry floor * Neurochecks every 4 hours * Swallow eval * Aspiration precautions * Started DAPT: Aspirin 81 daily, Plavix 75 daily #History of Parkinson's #History of deep brain stimulation surgery * Patient has DBS device, placed 7 years ago per patient Plan: * Resume home carbidopa levodopa 25-10 2 tablets 3 times a day, pramipexole hydrochloride 0.25 mg 3 times a day, rasagiline mesilate 1 mg daily #Chronic combined systolic and diastolic heart failure #Hypertension #Hyperlipidemia * Per [facility] medical chart review, the patient has history of chronic combined systolic and diastolic heart failure * The patient is past the permissive hypertensive window of 24 hours status post last known well from a suspected TIA Plan: * Atorvastatin 40 mg nightly * Valsartan 40 mg daily #Obstructive uropathy #BPH #UTI * Patient is a history of obstructive uropathy with a chronic Brar catheter * Patient was recently hospitalized for UTI and MCKAY in the setting of Brar catheter malfunction * Patient's urine is positive for blood and white blood cells Plan: * Urine culture pending * Continue ciprofloxacin 500 mg twice daily until 07/24/2025 #Chronic constipation * History of chronic constipation Plan: * Resume home Dulcolax, Fleet enema, milk of magnesia Hospital Maintenance: DVT ppx: Heparin 5000 units SQ every 8 hours GI ppx: Pantoprazole 40 mg every 12 hours Diet: Cardiac IV lines: Peripheral IV Brar: Chronic Brar Code status: Full code Dispo: Admitted for stroke versus TIA versus syncopal episode workup. Repeat head CT negative. Started valsartan and atorvastatin and DAPT with aspirin and Plavix. Patient was seen and discussed with my attending physician Dr. Edward ARREGUIN and my senior resident Dr. Cristiane ARREGUIN PGY-2. Jeremiah Judd DO PGY-1.
[2025-07-23] MEDS: ATORVASTATIN CALCIUM 20 MG TABLET 40 MG PO (22:33)
[2025-07-24] VITALS (9 sets, daily range): BP systolic 122–147; BP diastolic 76–93; PULSE 68–83; RESP 11–17; TEMP 36.2–36.7; O2SAT 92–94; BMI 32.5; BMI 13.0
[2025-07-24 05:17] LABS: Basophils # (Auto) 0.1 Thou/mm3 (0.0-0.2); Basophils % (Auto) 1 % (0-2.5); Eosinophils # (Auto) 0.8 Thou/mm3 (0.0-0.5); Eosinophils % (Auto) 8 % (0-10); Hematocrit 37.6 % (41.0-53.0); Hemoglobin 12.1 g/dL (13.5-16.0); Immature Granulocytes Auto 0.44 Thou/mm3 (0.00-0.00); Lymphocytes # (Auto) 1.9 Thou/mm3 (1.0-4.8); Lymphocytes % (Auto) 21 % (10-50); Mean Corpuscular HGB Conc 32.2 g/dl (31.0-37.0); Mean Corpuscular Hemoglobin 29.1 pg (25.0-35.0); Mean Corpuscular Volume 90 fL (80-100); Monocytes # (Auto) 0.6 Thou/mm3 (0.0-0.8); Monocytes % (Auto) 6 % (0-12); Neutrophils # (Auto) 5.4 Thou/mm3 (1.8-7.7); Neutrophils % (Auto) 59 % (37-80); Nucleated Red Blood Cell # 0.00 Thou/mm3 (0.00-0.00); Nucleated Red Blood Cell % 0 /100 WBC (0); Platelet Count 309 Thou/mm3 (140-440); RDW Standard Deviation 42.5 fL (35.1-43.9); Red Blood Count 4.16 Miln/mm3 (4.50-5.90); White Blood Count 9.2 Thou/mm3 (3.8-10.6)
[2025-07-24 06:04] LABS: Alanine Aminotransferase < 7 U/L (10-49); Albumin, Serum 3.5 gm/dL (3.4-4.8); Albumin/Globulin Ratio 1.3 (1.2-2.2); Alkaline Phosphatase 96 U/L (46-116); Anion Gap 9 (7-16); Aspartate Amino Transferase 17 U/L (0-34); BUN/Creatinine Ratio 15 Ratio (12-20); Bilirubin,Total 0.4 mg/dL (0.3-1.2); Blood Urea Nitrogen 17 mg/dL (9-23); Calcium 8.2 mg/dL (8.3-10.6); Calcium (Corrected) 8.6 mg/dL (8.5-10.1); Carbon Dioxide 26.6 mMol/L (20.0-31.0); Chloride 104 mMol/L (98-107); Creatinine (Component) 1.1 mg/dL (0.6-1.3); Estimated Creatinine Clearance 70.8 mL/min (>60); Globulin 2.8 gm/dL (2.3-3.5); Glucose 101 mg/dL (74-106); Magnesium 1.6 mg/dL (1.6-2.6); Osmolality,Calculated 280 (275-295); Phosphorous 2.8 mg/dL (2.4-5.1); Potassium 3.9 mMol/L (3.4-5.1); Sodium 140 mMol/L (136-145); Total Protein 6.3 gm/dL (5.7-8.2); eGFR > 60 See Note
[2025-07-24] MEDS: PRAMIPEXOLE 0.25 MG TABLET PO ×2 (06:04→14:14)
[2025-07-24] MEDS: CARBIDOPA/LEVODOPA 25/100 MG TABLET 2 TAB PO ×2 (06:04→14:14)
[2025-07-24] MEDS: HEPARIN SOD INJ 5000 UNIT/ML VIAL SC (06:08)
[2025-07-24] MEDS: ASPIRIN EC 81 MG TABEC PO (08:34)
[2025-07-24] MEDS: VALSARTAN 40 MG TABLET PO (08:34)
[2025-07-24] MEDS: CIPROFLOXACIN HCL 250 MG TABLET 500 MG PO (08:34)
--- NOTE | 2025-07-24 09:55 | PC.NURSE ---
Dr. Sauer aware no BM since 07/20. states I will order something.
[2025-07-24] MEDS: Milk Of Magnesia Susp 30 ML UDC PO (10:09)
[2025-07-24] MEDS: POLYETHYLENE GLYCOL 17 GM PACKET PO (10:10)
[2025-07-24] MEDS: LACTULOSE SYRUP 20 GM/30 ML UDC PO ×2 (11:01→14:14)
--- NOTE | 2025-07-24 12:00 | PC.NURSE ---
pt. to DC pending bowel movement. medication x3 administered for bowel movements
--- NOTE | 2025-07-24 12:27 | PC.SS ---
WIRE STRETCHER informed by bedside nurse that patient is pending bowel movement. D/C plan is for patient to transition to SNF.
--- NOTE | 2025-07-24 12:47 | PC.NURSE ---
Dr. Mata aware pt. had a 9 second run of VTach around 5 this AM. states since it has no happened again, pt. can still be Dc once pt. has BM.
--- NOTE | 2025-07-24 13:06 | PD.RESDS ---
Planned Discharge Date 07/24/25 DS: Providers Provider Date of admission: 07/22/25 14:35 Primary care physician: Physician No Primary/Family Admitting Provider: Roxy Leon MD Attending Provider on Admission: Mariano Mata MD Consults: 07/22/25 12:24 Consult to Neurology / Tele-Neurology Routine Comment: Consulting Provider: [facility] 07/22/25 16:56 Consult to Neurology / Tele-Neurology Routine Comment: Consulting Provider: Stevenson Lloyd 07/22/25 17:09 Referral Physical Therapy Routine Comment: Physician Instructions: Referral Speech Therapy Routine Comment: Attending Provider on DC: Kevan Sauer MD Discharging Provider: Kevan Sauer MD DS: Diagnosis Problem List Completed Was Problem List Reviewed/Reconciled?: Yes Hospital Course Hospital Course Hospital course: Kem Urrutia is a 74-year-old male with a past medical history of Parkinson's s/p DBS on carbidopa levodopa, BPH with chronic Brar who presented from [facility] after being found unresponsive in the morning. Per report, patient had left-sided facial droop 20 minutes prior to arrival. In ED, teleneurology evaluated patient and NIHSS score of 1.CT head negative for hemorrhage, CTA head/neck negative for LVO. DBS was not MRI-compatible so repeat CT head in the morning was obtained and no interval changes seen. Echo with bubble study was negative and patient was deemed stable for discharge on aspirin and statin and resume home Parkinson medications. Vital signs remained stable, CBC was stable and unremarkable, and CHEM panel also unremarkable. Diagnoses during admission: #AMS #History of Parkinson's #History of deep brain stimulation surgery #Chronic combined systolic and diastolic heart failure #Hypertension #Hyperlipidemia #Obstructive uropathy #BPH #UTI #Chronic constipation Discharge instructions: ? Continue taking all other home medications as prescribed ? Follow-up with PCP within 1-2 weeks of discharge ? You've been started on aspirin 81 mg and atorvastatin 40 mg to be taken daily ? If you do not have a PCP, you can follow-up at the [facility] (you can call [phone] to make an appointment) ? Return to ED if symptoms worsen or recur ----- Note reviewed and agree with care plan as documented. Please refer to the note below for further details. Plan discussed with attending physician Dr. Adolfo Sauer MD PGY-2 Internal Medicine Time Spent with Patient Time attestation: Total time spent providing and/or coordinating discharge services: 38 min Time spent: Greater than 30 minutes Quality: Stroke Pt Provided Written Stroke Discharge Instructions: Yes Exam Vital Signs Temp Pulse Resp BP Pulse Ox O2 Del Method O2 Flow Rate 97.1 F 70 16 129/83 92 L Room Air 2 07/24/25 08:00 07/24/25 08:34 07/24/25 08:00 07/24/25 08:34 07/24/25 08:00 07/24/25 08:00 07/22/25 16:39 Narrative Exam General: Awake and in no acute distress. Conversational and non-toxic appearing. Neurologic: GCS 15. Alert and oriented x3, no gross neurological deficit, and patient able to move all 4 extremities. HEENT: Normocephalic, atraumatic, mucous membranes moist. Pupils reactive to light. Heart: Regular rate and rhythm, normal S1 and S2, no murmurs. Lungs: Clear to auscultation bilaterally with no wheezing or crackles. Abdomen: Soft, nondistended, nontender, positive bowel sounds. No guarding or rebound tenderness. Extremities: Grade 2 tremor in the left upper extremity and left lower extremity. No edema. 2+ radial and dorsalis pedis pulses bilaterally. Skin: Warm. Dry. No rash or ecchymoses. Discharge Plan Problem List Was Problem List Reviewed/Reconciled?: Yes Plan [place] [facility] [place] Patient condition on transfer: Stable Care Plan Goals: ? Continue taking all other home medications as prescribed ? Follow-up with PCP within 1-2 weeks of discharge ? You've been started on aspirin 81 mg and atorvastatin 40 mg to be taken daily ? If you do not have a PCP, you can follow-up at the [facility] (you can call [phone] to make an appointment) ? Return to ED if symptoms worsen or recur Prescriptions/Referrals Prescriptions/Med Rec: New aspirin 81 mg Tablet,Delayed Release (Dr/Ec) 81 mg PO DAILY 30 Days Qty: 30 0RF atorvastatin 40 mg tablet 40 mg PO HS 30 Days Qty: 30 0RF Continued pramipexole 0.25 mg tablet 0.25 mg PO TID rasagiline 1 mg tablet 1 mg PO DAILY carbidopa-levodopa 25-100 mg tablet 2 tab PO TID ciprofloxacin HCl [Cipro] 500 mg tablet 500 mg PO Q12H Qty: 10 0RF Referrals: No Primary/Family,Physician [Primary Care Provider] Patient/Caregiver Discharge Instructions Education Materials: Risk Factors for Stroke Print Language: Norwegian Stand Alone Forms: Lesley Award Info., Patient Portal Info Letter Discharge Order Discharge Orders: Discharge (Routine); Ordered 07/24/25 Ordered By: Kevan Berumen [facility] Quality Discharge Quality Measures VTE prophylaxis Attestestation MD Attestation I attest that I was physically present for the evaluation, physical examination, lab and imaging review of the patient with the residents. I discussed the case with the residents and agree with the findings and plans of care as documented above. Mariano Mata MD
--- NOTE | 2025-07-24 13:31 | PD.RESPRO ---
Documentation for date of: 07/24/25 Subjective Subjective Interval history: Patient was seen and examined at the bedside. No acute overnight events reported. Patient denied having a bowel movement and multiple laxative therapy were given. Patient is stable and reported no new neurological symptoms. Patient can be safely discharged on aspirin and statin therapy. Recommended to continue patient's Parkinson medications. All labs and orders were reviewed. Exam Vital Signs Temp Pulse Resp BP Pulse Ox O2 Del Method O2 Flow Rate 97.1 F 70 16 129/83 92 L Room Air 2 07/24/25 08:00 07/24/25 08:34 07/24/25 08:00 07/24/25 08:34 07/24/25 08:00 07/24/25 08:00 07/22/25 16:39 Narrative Exam General: Awake and in no acute distress. Conversational and non-toxic appearing. Neurologic: GCS 15. Alert and oriented x2, no gross neurological deficit, and patient able to move all 4 extremities. HEENT: Normocephalic, atraumatic, mucous membranes moist. Pupils reactive to light. Heart: Regular rate and rhythm, normal S1 and S2, no murmurs. Lungs: Clear to auscultation bilaterally with no wheezing or crackles. Abdomen: Soft, nondistended, nontender, positive bowel sounds. No guarding or rebound tenderness. Extremities: Grade 3 tremor in the left upper extremity and left lower extremity. No edema. 2+ radial and dorsalis pedis pulses bilaterally. Skin: Warm. Dry. No rash or ecchymoses. Objective Labs 07/24/25 04:22 07/24/25 04:22 Labs: Laboratory Results - last 24 hr 07/24/25 04:22 WBC 9.2 RBC 4.16 L Hgb 12.1 L Hct 37.6 L MCV 90 MCH 29.1 MCHC 32.2 RDW Std Deviation 42.5 Plt Count 309 Neut % (Auto) 59 Lymph % (Auto) 21 [place] % (Auto) 6 Eos % (Auto) 8 Baso % (Auto) 1 Neut # (Auto) 5.4 Lymph # (Auto) 1.9 [place] # (Auto) 0.6 Eos # (Auto) 0.8 H Baso # (Auto) 0.1 Immature Gran # (Auto) 0.44 H Absolute Nucleated RBC 0.00 Immature Gran % 5 H Nucleated RBC % 0 Sodium 140 Potassium 3.9 Chloride 104 Carbon Dioxide 26.6 Anion Gap 9 BUN 17 Creatinine 1.1 Estim Creat Clear Calc 70.8 eGFR > 60 BUN/Creatinine Ratio 15 Glucose 101 Calculated Osmolality 280 Calcium 8.2 L Corrected Calcium 8.6 Phosphorus 2.8 Magnesium 1.6 Total Bilirubin 0.4 AST 17 ALT < 7 L Alkaline Phosphatase 96 Total Protein 6.3 Albumin 3.5 Globulin 2.8 Albumin/Globulin Ratio 1.3 Quality Measures Quality Measures VTE prophylaxis Advance care planning discussed with:: other Assessment & Plan Assessment Current Active Medications: Generic Name Dose Route Start Last Admin Trade Name Freq PRN Reason Stop Dose Admin Acetaminophen 1,000 mg 07/22/25 14:35 Acetaminophen 500 Mg Tablet PO 08/21/25 14:34 Q6H PRN Fever >99.9 Aspirin 81 mg 07/24/25 09:00 07/24/25 08:34 Aspirin Ec 81 Mg Tabec PO 08/23/25 08:59 81 mg DAILY DAVID Administration Atorvastatin Calcium 40 mg 07/23/25 21:00 07/23/25 22:33 Atorvastatin Calcium 20 Mg Tablet PO 08/22/25 20:59 40 mg HS DAVID Administration Carbidopa/Levodopa 2 tab 07/22/25 22:00 07/24/25 06:04 Carbidopa/Levodopa 25/100 Mg Tablet PO 08/21/25 21:59 2 tab TID DAVID Administration Ciprofloxacin 500 mg 07/22/25 17:00 07/24/25 08:34 Ciprofloxacin Hcl 250 Mg Tablet PO 07/28/25 16:59 500 mg Q12HR DAVID Administration Heparin Sodium (Porcine) 5,000 unit 07/22/25 15:00 07/24/25 06:08 Heparin Sod Inj 5000 Unit/Ml Vial SC 08/05/25 14:59 5,000 unit Q8HR DAVID Administration Lactulose 20 gm 07/24/25 09:55 07/24/25 11:01 Lactulose Syrup 20 Gm/30 Ml Udc PO 08/23/25 09:54 20 gm X1 PRN Administration CONSTIPATION Protocol Non-Formulary Medication 1 mg 07/23/25 09:00 Rasagiline PO 08/22/25 08:59 DAILY DAVID Ondansetron HCl 4 mg 07/22/25 12:24 Ondansetron Inj 2 Mg/Ml Inj 2 Ml IVP 08/21/25 12:23 Q4HR PRN NAUSEA OR VOMITING Pantoprazole Sodium 40 mg 07/24/25 09:00 07/24/25 08:34 Pantoprazole Inj 40 Mg Vial IVP 08/23/25 08:59 40 mg QDAY DAVID Administration Pramipexole Dihydrochloride 0.25 mg 07/22/25 22:00 07/24/25 06:04 Pramipexole 0.25 Mg Tablet PO 08/21/25 21:59 0.25 mg TID ADVID Administration Valsartan 40 mg 07/23/25 14:30 07/24/25 08:34 Valsartan 40 Mg Tablet PO 08/22/25 14:29 40 mg QDAY DAVID Administration Plan This 74-year-old male past medical history of Parkinson's status post deep brain stimulation implantation, CHF, constipation, obstructive and reflux uropathy, chronic Brar cath, BPH, and falls presented from [facility] on 07/22/2025 after staff member found the patient unresponsive. Patient was admitted for stroke versus TIA versus syncopal workup. #Stroke, ruled out -Patient was unresponsive for 7 minutes after being found by [facility] staff member at 11:15 AM morning of 07/22/2025. Last known well was 10 AM that same morning. Head CTA negative Patient had no focal neurological deficits on exam Patient had no murmurs on exam, may make syncopal event due to obstructive cardiomyopathy less likely. NIHSS:[address] brain was negative. Echo showed Normal left ventricular size and function. Grade I diastolic dysfunction.estimated ejection fraction is 50- 55%. Normal right ventricular size and function. RVSP normal. Trace TR Mild aortic valve sclerosis without stenosis.Mild aortic valve regurgitation. No clear pericardial effusion. Plan: Recommended to continue aspirin, and atorvastatin. DC Plavix. Less likely to be a stroke and Parkinson disease is stable Patient can be safely discharged from neurology standpoint #History of Parkinson #History of deep brain stimulation Plan: Continue with carbidopa-levodopa 2 tablets 3 times a day, pramipexole 0.25 mg 3 times daily, rasagiline 1 mg daily #Chronic constipation #Chronic combined systolic and diastolic Heart failure #Obstructive uropathy #BPH #UTI Rest of the management as per primary care team. Plan of care discussed with neurologist, Dr Prema Bridges MD, PGY 3 Attending Provider Attestation/Addendum I personally have seen and examined the patient at the bedside and I agree with the resident's findings, assessment and plan of care. Patient is stable from neurology standpoint with regards to Parkinson's disease with his current settings of the DBS and current home meds. Follow-up with neurology as an outpatient, stable for discharge home.
--- NOTE | 2025-07-24 14:35 | PC.SS ---
VP COMPLIANCE confirmed with [facility] staff that if patient discharges tonight will not require authorization to return to [facility]. If patient discharges after today's date (07-24-25) patient will require re-authorization for placement.
--- NOTE | 2025-07-24 16:11 | PC.SS ---
Transport scheduled for 4:00 pm today. LANG INTERPRETER notified bedside nurse, patient and SNF.
== END 2025-07-24 16:15 | disposition skilled nursing facility (03) ==
LOC: SERX 14:29 → SERHOLD 16:10 → S2NX 20:43 → SERHOLD 07-23 13:39 → S2NX 07-23 13:39
PROVIDERS: Registered Nurse General Practice; Admitting Provider Student in an Organized Health Care Education/Training Program; Emergency Provider Emergency Medicine; Visit Provider Student in an Organized Health Care Education/Training Program
DX: R41.82 Altered mental status, unspecified (principal); G20.A1 Parkinson's disease without dyskinesia, without mention of fluctuations; K59.09 Other constipation; I11.0 Hypertensive heart disease with heart failure; I50.42 Chronic combined systolic (congestive) and diastolic (congestive) heart failure; E78.5 Hyperlipidemia, unspecified; N39.0 Urinary tract infection, site not specified; N40.1 Benign prostatic hyperplasia with lower urinary tract symptoms; N13.8 Other obstructive and reflux uropathy; R29.810 Facial weakness; I45.10 Unspecified right bundle-branch block; I44.0 Atrioventricular block, first degree
CPT/HCPCS: 51702; 36415; 70450; 70496; 70498; 71045; 80053; 80061; 80307; 81001; 83036; 83735; 84100; 84443; 84484; 85025; 85610; 85730; 87081; 87086; 92610; 93005; 93306; 96372; 96374; 96376; 97162; 99285; A4314; A4649; G0378; J1644; J2470; J7030; Q9967; A9270